=== PATIENT | female | born 1945 | race African-American/Black ===

== ENCOUNTER 2017-09-20 10:11 | Outpatient (CLI) | payer MEDICARE ==
[~2017-09-20 10:11] MED LIST: Gadobenate Dimeglumine 529 MG/1 ML (20ML VIAL) ONE
[2017-09-20 11:16] LABS: Estimated GFR-MDRD - POC Greater than 90
--- NOTE | 2017-09-20 13:50 | MRI ---
MRI ABDOMEN WITH AND WITHOUT CONTRAST: Date: 09/20/17 HISTORY: R93.5. COMPARISON: CT dated 09/06/17. CT chest from 2007. FINDINGS: There is a mass in the left adrenal gland, which is new from the 2008 CT chest examination. Mass pamela ures 3.5 x 3.3 x 3.7 cm (trans x AP x CC) with central cystic change. On the contrast enhanced portio n of the examination, there is marked enhancement with multiple flow-voids of vessels. The mass retai ns contrast on the delayed sequence. No hydronephrosis. No abnormal enhancing renal mass. No dilated loops of bowel. Liver, gallbladder, s pleen, and pancreas are all unremarkable. No adenopathy. There is a focal abnormal area of enhancement within the L3 vertebral body. There is also abnormal fo cus of enhancement in right iliac wing, incompletely evaluated on this examination. There are focal a bnormal foci of enhancement of the superior end plate of L3, posterior L2 vertebral body, as well as within the L1 vertebra. There is abnormal increased enhancement along the posterolateral left 11th rib. There is also focal a bnormal enhancement of the right anterior 9th rib. IMPRESSION: 1. Left adrenal mass that has imaging characteristics of pheochromocytoma although is not completely an imaging diagnosis. Recommend correlation with urine metanephrines. Differential include adrenal c ortical carcinoma or metastatic disease. 2. Multiple areas of abnormal enhancement of the vertebra as well as right ilium, and of the right 8 th rib at the costochondral junction concerning for metastasis. There is also abnormal enhancement of posterolateral left 11th rib concerning for fracture. CODE T. POS: [facility]
== END 2017-09-20 10:12 | disposition home or self-care (01) ==
LOC: SCSMRI 10:11
PROVIDERS: ATTEND Internal Medicine
DX: R93.5 Abnormal findings on diagnostic imaging of other abdominal regions, including retroperitoneum (principal); E27.8 Other specified disorders of adrenal gland
CPT/HCPCS: 74183; A9579

== ENCOUNTER 2017-10-08 12:49 | Outpatient (CLI) | payer MEDICARE ==
--- NOTE | 2017-10-08 15:49 | PET ---
EXAM: PET SCAN WITH CT ATTENUATION CORRECTION 10/08/17 HISTORY: Breast cancer with suspected metastases. COMPARISON: None. CORRELATION: Abdomen MRI 09/19/17, chest, abdomen and pelvic CT 09/06/17. TECHNIQUE: PET scan with CT attenuation correction performed after patient was administered 10.5 millicuries of [id number]. FINDINGS: HEAD AND NECK: No abnormal FDG localization. CHEST: No abnormal FDG localization. ABDOMEN: There is hypermetabolic activity involving a previously identified left adrenal mass with a maximum S UV of 6.6. There is a soft tissue mass in the anterior left peritoneum with a maximum SUV of 8.5. OSSEOUS STRUCTURES: There is extensive and multifocal hypermetabolic activity throughout the osseous structures. For exam ple, hypermetabolic focus in the right scapula has maximum SUV of 2.8. There is increased FDG localiz ation involving the thoracic vertebrae with a maximum SUV of 3.9 at T9 and 3.6 at T10. The T10 lesion appears to have an epidural component. There is increased FDG localization involving the iliac bones. Maximum SUV on the right is 4.1 and ma ximum SUV on the left iliac bone is 5.6. IMPRESSION: Intra-abdominal and osseous metastases as detailed above. Results of the study discussed with Dr. Lambert 10/08/17 at 3:29 p.m. Code CR POS: [facility]
== END 2017-10-08 12:50 | disposition home or self-care (01) ==
LOC: PET 12:49
PROVIDERS: ATTEND Internal Medicine Hematology & Oncology
DX: C50.919 Malignant neoplasm of unspecified site of unspecified female breast (principal); C79.51 Secondary malignant neoplasm of bone; C79.89 Secondary malignant neoplasm of other specified sites
CPT/HCPCS: 78815; A9552

== ENCOUNTER 2018-02-04 13:01 | Outpatient (CLI) | payer MEDICARE ==
--- NOTE | 2018-02-04 15:36 | PET ---
PET CT: Date: 02/04/18 HISTORY: 73-year-old female with left breast cancer and bone mets. Exam requested for restaging. Patient is st atus post chemo/radiation therapy. TECHNIQUE: PET scanning with CT attenuation correction was performed from the base of the brain through the prox imal thighs following the intravenous administration of 12.1 mCi F18-FDG in the right hand. COMPARISON: PET scan dated 10/08/17. FINDINGS: Head/Neck: No abnormal FDG localization. Chest: No abnormal FDG localization. Abdomen/Pelvis: There is continued hypermetabolic activity in the left adrenal mass with a QSUV of 9.4 (previously 10 .3). The hypermetabolic soft tissue mass in the left lower anterior peritoneum has a SUV of 2.9 (prev iously 8.2). Skeleton: There has been interval resolution of hypermetabolic lesions in the scapula, sternum, thoracolumbar s pine, and right proximal femur. There is continued hypermetabolic activity in the right lateral 8th r ib with a SUV of 5.5 (previously 5.7). The remainder of the hypermetabolic rib lesions have resolved in the interim. Hypermetabolic focus in the sacrum has a SUV of 5 (previously 5.6). Lesions in the iliac bones have SUVs of 4.3 on the right (previously 4.5) and 6.6 on the left (previo usly 7.4). There is physiologic activity in the GI and tracts, and the visualized portions of the brain and t he heart. The CT scan used for attenuation correction demonstrates no evidence of pleural effusions or ascites. IMPRESSION: Partial/incomplete response to therapy with interval improvement since 10/08/17. POS: [facility]
== END 2018-02-04 13:02 | disposition home or self-care (01) ==
LOC: PET 13:01
PROVIDERS: ATTEND Internal Medicine Hematology & Oncology
DX: C50.912 Malignant neoplasm of unspecified site of left female breast (principal); C79.51 Secondary malignant neoplasm of bone
CPT/HCPCS: 78815; A9552

== ENCOUNTER 2018-06-12 08:01 | Outpatient (CLI) | payer MEDICARE, OTHER ==
--- NOTE | 2018-06-12 12:04 | PET ---
PET SCAN WITH CT ATTENUATION CORRECTION: HISTORY: Metastatic breast cancer. COMPARISON: 02/04/18. TECHNIQUE: PET scanning with CT attenuation correction is performed from the base of the brain to the proximal t highs following the intravenous administration of 10.1 mCi F18-FDG. FINDINGS: HEAD/NECK: No abnormal FDG localization. CHEST: No abnormal FDG localization. ABDOMEN: There is hypermetabolic activity in the left adrenal gland with a maximum SUV of 2.6. Previously, the maximum SUV was reported to be 9.4. There is hypermetabolic activity involving a soft tissue mass in the anterior left lower quadrant peritoneum with a maximum SUV of 7.5. Previously, the maximum SUV w as 9.4. OSSEOUS STRUCTURES: There is extensive multifocal hypermetabolic activity. Hypermetabolic activity is noted in the ribs, right scapula, sacrum, and bony pelvis. Hypermetabolic activity in the sacrum currently measures 4.3 (previously measuring 5.0). Additional hypermetabolic activity in the left and right iliac wing measu re between 4.3-8.3 to 5.4, respectively. There is hypermetabolic activity involving the spinous proce ss at T1, as well as C3. IMPRESSION: Persistent hypermetabolic activity in the osseous structures, left adrenal gland, and associated with a soft tissue mass in the left anterior peritoneum. There has been slight appreciable decrease in th e overall degree of FDG avidity when compared to the previous exam. POS: [facility]
== END 2018-06-12 08:02 | disposition home or self-care (01) ==
LOC: PET 08:01
PROVIDERS: ATTEND Internal Medicine Hematology & Oncology
DX: Z08 Encounter for follow-up examination after completed treatment for malignant neoplasm (principal); Z85.3 Personal history of malignant neoplasm of breast; K66.8 Other specified disorders of peritoneum
CPT/HCPCS: 78815; A9552

== ENCOUNTER 2018-10-02 09:06 | Outpatient (CLI) | payer MEDICARE ==
--- NOTE | 2018-10-02 12:23 | PET ---
RADIONUCLIDE PET SCAN WITH CT ATTENUATION CORRECTION: HISTORY: Breast cancer. Osseous metastasis. Restaging. COMPARISON: 06/12/18. FINDINGS: Physiologic uptake of radiotracer throughout the enteric system and along each urinary tract. Uptake at the left adrenal gland shows a maximum SUV of 2.8 (previously 2.6). Hypermetabolic foci throughout the skeleton are again demonstrated. C2 spinous process maximum SUV 3.5 (previously 2.9). Right scapula maximum SUV 3.4 (previously 3.9). Left scapula maximum SUV 2.2 (previously 4.2). Right 8th rib SUV 5.5 (previously 4.2). Right iliac bone similar at 8.1 maximum SUV. Left iliac bone similar at 9.6 maximum SUV. Sacrum SUV 4.6 (previously 4.3). Within the posterior aspect of the sternomanubrium, a focus of increased uptake now shows a maximum S UV of 5.1. No abnormal uptake was apparent at this location on the previous exam. The mass within the left anterior abdomen immediately deep to the abdominal wall musculature shows ma ximum SUV of 8.3 (previously 7.5). Nondiagnostic CT attenuation correction images again shows prominent calcification throughout the art erial structures. IMPRESSION: 1. A new focus of hypermetabolic activity is now present within the sternomanubrium as detailed abov e. No other new abnormalities are apparent. 2. Other osseous abnormalities, the left anterior intra-abdominal mass, and mildly hypermetabolic ac tivity associated with left adrenal gland are otherwise stable. 3. Atherosclerosis. POS: [facility]
== END 2018-10-02 09:07 | disposition home or self-care (01) ==
LOC: PET 09:06
PROVIDERS: ATTEND Internal Medicine Hematology & Oncology
DX: C50.919 Malignant neoplasm of unspecified site of unspecified female breast (principal); R19.00 Intra-abdominal and pelvic swelling, mass and lump, unspecified site; I70.90 Unspecified atherosclerosis
CPT/HCPCS: 78815; A9552

== ENCOUNTER 2018-10-13 10:41 | Outpatient (CLI) | payer MEDICARE ==
--- NOTE | 2018-10-13 15:21 | CT ---
CT CHEST WITH CONTRAST: 10/13/18 HISTORY: Abnormal PET scan. COMPARISON: PET CT 10/02/18. FINDINGS: Corresponding to the area of hypermetabolic activity in the PET CT examination is a focal lucency of the posterior manubrium with the sternum. This is faint and not well defined, although is concerning for a new focus of osseous metastatic disease. No retrosternal soft tissue mass is appreciated. Heart size is mildly enlarged. Pulmonary trunk size is enlarged measuring 3 cm. Aortic contour is non aneurysmal. Mild right sided hemithorax and pleural thickening posteriorly. No left sided pleural thickening. No new suspicious pulmonary nodules. Osseous metastatic disease has been described. Mass of the left adrenal gland appears more necrotic than the prior examinations likely sequela of tr eatment response. Extensive mixed lytic and blastic lesions of the skeleton as previously described. Advanced degenerative disease of the left glenohumeral joint and moderate degenerative disease right glenohumeral joint. Large lytic mass within the right T10 vertebral body is similar to the comparison examination and is at risk for pathologic fracture, although no significant height loss is yet prese nt at this level. Overall there are more foci of sclerosis and lytic foci within the ribs from the 08/12 exam. IMPRESSION: 1. Corresponding to the PET CT findings is a new cortical and medullary erosive lytic focus with in the sternum as described. It is ill-defined although there is loss of normal cortical integrity po steriorly. No associated soft tissue or mediastinal mass. It is concerning for progressive metastatic disease. 2. Increased necrosis left adrenal mass suggesting treatment response. 3. Some mild edema within the left sided omentum in the abdomen suggesting congestion and metast atic disease. POS: [facility]
== END 2018-10-13 10:42 | disposition home or self-care (01) ==
LOC: BICCT 10:41
PROVIDERS: ATTEND Internal Medicine Hematology & Oncology
DX: R93.5 Abnormal findings on diagnostic imaging of other abdominal regions, including retroperitoneum (principal); E27.8 Other specified disorders of adrenal gland; R60.0 Localized edema; Z85.3 Personal history of malignant neoplasm of breast
CPT/HCPCS: 71260

== ENCOUNTER 2018-12-10 10:18 | Outpatient (CLI) | payer MEDICARE ==
--- NOTE | 2018-12-10 14:06 | NM ---
NM Bone Scan STANDARD WHOLE BODY BONE SCAN: HISTORY: Breast cancer, bone metastases, right rib pain. Malignant neoplasm of unspecified site of un specified female breast RADIOPHARMACEUTICAL: 30.6 mCi technetium-99m MDP injected intravenously. COMPARISON: None FINDINGS: There is increased uptake in the shoulders, sternoclavicular joints, elbows, hands, and feet consist ent with degenerative changes. There are multiple foci of abnormally increased tracer localization in the skeleton consistent with o sseous metastatic disease including the sternum, skull, spine, ribs and pelvis. Tracer excretion through the kidneys is within normal limits. IMPRESSION: Findings are consistent with osseous metastatic disease.
== END 2018-12-10 10:19 | disposition home or self-care (01) ==
LOC: NM 10:18
PROVIDERS: ATTEND Internal Medicine Hematology & Oncology
DX: C79.51 Secondary malignant neoplasm of bone (principal); C50.919 Malignant neoplasm of unspecified site of unspecified female breast; R07.81 Pleurodynia; Z85.3 Personal history of malignant neoplasm of breast; Z79.51 Long term (current) use of inhaled steroids
CPT/HCPCS: 78306

== ENCOUNTER 2019-03-31 09:38 | Outpatient (CLI) | payer MEDICARE ==
--- NOTE | 2019-03-31 15:04 | PET ---
PET CT: HISTORY: A 74-year-old female with left breast cancer and bone mets. The patient is undergoing chemotherapy. The exam is requested for restaging. TECHNIQUE: PET scanning with CT attenuation was performed from the base of the brain through the proximal thighs following the intravenous administration of 11.6 mCi [id number] in the right hand. COMPARISON: PET CT of 10/02/2018. CORRELATION: Bone scan of 12/10/[address] chest of 10/23/2018. FINDINGS: No darryl hypermetabolism is seen in the neck, chest, axilla, abdomen, or pelvis. Numerous foci of ab normal FDG localization is seen in the skeleton including the spine, pelvis, ribs, scapulae, and ster num. SUVs in the bones include manubrium sterni 11.3 (previously 5.1), L1 7.2 (previously 4.1), sacr um 7.1 (previously 4.6), and left superior acetabulum 12.4 (9.6). No new areas of FDG localization a re seen. No new bony lesions are seen. Hypermetabolic activity in the left adrenal mass has an SUV of 3.6 (previously 2.7). Intense uptake is seen in the region of the omentum with a maximum SUV of 13.4 on the right and 11 on the left. No hypermetabolic pulmonary nodules or liver lesions are seen. The CT used for attenuation correction demonstrates a moderate-sized left pleural effusion and a tiny right pleural effusion. There is a moderate amount of ascites. IMPRESSION: Interval worsening of metastatic disease since 10/02/2018. POS: [facility]
== END 2019-03-31 12:00 | disposition home or self-care (01) ==
LOC: PET 09:38
PROVIDERS: ATTEND Internal Medicine Hematology & Oncology
DX: C79.51 Secondary malignant neoplasm of bone (principal); C50.912 Malignant neoplasm of unspecified site of left female breast
CPT/HCPCS: 78815; A9552

== ENCOUNTER 2019-04-14 08:30 | Day surgery (SDC) | payer MEDICARE ==
[2019-04-13 17:06] VITALS: BMI 31.3
[2019-04-14 08:54] LABS: Prothrombin Time 13.6 SEC (12.0-14.7)
[2019-04-14 08:55] LABS: Hemoglobin 10.7 g/dL (12.0-16.0); Mean Corpuscular HGB CONC 33.2 g/dL (32.0-36.0); Mean Corpuscular Hemoglobin 38.8 pg (27.0-31.0); Mean Platelet Volume 5.8 fL (7.4-10.4); PTT 29.6 SEC (22.9-36.1); Platelet Count 347 thou/uL (130-400); RBC Distribution Width 14.4 % (11.5-14.5); Red Blood Cell (RBC) Count 2.76 mill/uL (4.20-5.40); White Blood Cell (WBC) Count 3.1 thou/uL (4.8-10.8)
[2019-04-14 08:56] LABS: #Lymphocytes 1.1 thou/uL (1.20-3.40); #Monocytes 0.2 thou/uL (0.11-0.59); #Neutrophils 1.8 thou/uL (1.40-6.50); %Basophils 1.3 % (0.0-1.0); %Eosinophils 1.2 % (0.0-10.0); %Lymphocytes 34.6 % (21.0-51.0); %Monocytes 4.8 % (0.0-10.0); %Neutrophils 58.1 % (42.0-75.0)
[2019-04-14 09:15] LABS: MDiff Complete? YES; Macrocytosis MODERATE=16-30 cells (100X) (0-5/hpf); Platelet Morphology Comment Appears Adequate; Polychromasia SLIGHT = 2-3 cells (100X) (0-2/hpf)
[2019-04-14] MEDS ORDERED: Midazolam HCl 2 mg/2 ml Vial ONE (10:18)
[2019-04-14] MEDS ORDERED: Fentanyl 100 MCG/2 ML VIAL ONE (10:18)
[2019-04-14] MEDS ORDERED: Sodium Bicarbonate 2.5 MEQ/5 ML VIAL ONE (10:18)
--- NOTE | 2019-04-14 15:18 | CT ---
CT GUIDED RIGHT ILIAC LYTIC BONE LESION: CLINICAL HISTORY: Lytic bone lesions in the pelvis.. PROCEDURE: The procedure including the risks and complications were explained to the patient, and informed conse nt was obtained. The patient was placed on the CT scan table in the prone position. Noncontrasted CT images were obtained through the pelvis. An area was marked overlying the right bushra c bone lesion, and the area was meticulously prepped and draped in usual sterile fashion. The skin and subcutaneous tissues were infiltrated with buffered 1% lidocaine for local anesthesia. After a small skin incision was made, a 17-gauge guide needle was advanced and positioning was confir med with axial CT images. Utilizing coaxial technique, a total of three 18-gauge core needle biopsy specimens were obtained. Adequate specimen was obtained with the initial biopsy with only scant mater ial obtained with the 2 subsequent biopsies. Needle aspiration of this region was also performed and placed in solution. The needle was removed, and hemostasis was achieved with direct pressure. Pos tprocedure axial CT images demonstrate no hematoma or adjacent fluid at biopsy site. The patient tolerated the procedure well and without immediate complication. The patient was transpor allyssa to radiology nurses holding area for further monitoring prior to discharge. IMPRESSION: Technically successful CT-guided percutaneous biopsy of right iliac lytic bone lesion. Pathology results are pending.
== END 2019-04-14 12:20 | disposition home or self-care (01) ==
LOC: RAD 08:30
PROVIDERS: ATTEND Internal Medicine Hematology & Oncology
PROC: 0QB23ZX Excision of Right Pelvic Bone, Percutaneous Approach, Diagnostic (ICD-10-PCS; principal; 2019-04-14)
DX: C79.51 Secondary malignant neoplasm of bone (principal); C50.919 Malignant neoplasm of unspecified site of unspecified female breast; E11.9 Type 2 diabetes mellitus without complications; I10 Essential (primary) hypertension; I25.10 Atherosclerotic heart disease of native coronary artery without angina pectoris; E78.00 Pure hypercholesterolemia, unspecified; Z79.02 Long term (current) use of antithrombotics/antiplatelets; Z79.4 Long term (current) use of insulin; Z79.82 Long term (current) use of aspirin; Z79.899 Other long term (current) drug therapy; Z88.2 Allergy status to sulfonamides
CPT/HCPCS: 20225; 36415; 77002; 85025; 85610; 85730; 88307; 88333; 88334; 88341; 88342; 88360; J2250; J3010

== ENCOUNTER 2019-07-15 09:10 | Outpatient (CLI) | payer MEDICARE ==
[2019-07-15] MEDS ORDERED: Iopamidol 370 76% 100 ML VIAL ONE (11:32)
--- NOTE | 2019-07-15 11:35 | CT ---
CT CHEST WITH IV CONTRAST CT ABDOMEN WITH IV CONTRAST CT PELVIS WITH IV CONTRAST: HISTORY: Left breast cancer and bone mets. The patient is status post lumpectomy and chemoradiation therapy. COMPARISON: CT chest of 10/13/2018. CORRELATION: PET CT of 03/31/2019. FINDINGS: Tiny bilateral pleural effusions are seen. No mediastinal, hilar, or axillary mass or lymphadenopath y identified. No pericardial effusion is noted. No lung nodules or masses are noted. There are pat john ground-glass infiltrates in the left lung likely due to radiation changes. Calcified granulomas are again seen in the liver. The spleen, pancreas, kidneys, and right adrenal gland appear normal. A 3 cm left adrenal mass is stable since the PET scan. No free air, free fluid, or lymphadenopathy is seen in the abdomen or pelvis. Omental caking is agai n noted on the PET CT is again noted. There are vascular calcifications without evidence of aneurysmal dilatation of the thoracoabdominal a linda. The small bowel loops are not abnormally dilated. The patient is post hysterectomy. Lytic an d sclerotic lesions in the skeleton are redemonstrated. IMPRESSION: 1. Tiny bilateral pleural effusions. 2. Stable left adrenal mass and omental caking. 3. Osseous metastatic disease. POS: [facility]
--- NOTE | 2019-07-15 14:13 | NM ---
WHOLE BODY BONE SCAN: HISTORY: Malignant neoplasm of unspecified of unspecified female breast. Breast cancer. Bone metastasis. RADIOPHARMACEUTICAL: Technetium 99m MDP 31.6 millicuries injected intravenously. COMPARISON: 12/10/2018 FINDINGS: There is redemonstration of multiple foci of abnormal increased tracer localization in the skeleton, consistent with osseous metastatic disease, including the sternum, skull, spine, ribs and pelvis. Increased uptake in multiple joints, consistent with degenerative changes, is again noted. Tracer excretion through the kidneys is within normal limits. IMPRESSION: Stable osseous metastatic disease. POS: [facility]
== END 2019-07-15 09:11 | disposition home or self-care (01) ==
LOC: CT 09:10
PROVIDERS: ATTEND Internal Medicine Hematology & Oncology
DX: C50.919 Malignant neoplasm of unspecified site of unspecified female breast (principal); C79.51 Secondary malignant neoplasm of bone; J90 Pleural effusion, not elsewhere classified; E27.8 Other specified disorders of adrenal gland
CPT/HCPCS: 71260; 74177; 78306; A9503; Q9967

== ENCOUNTER 2020-05-23 11:47 | Outpatient (CLI) | payer MEDICARE ==
--- NOTE | 2020-05-23 15:26 | NM ---
Radionucleotide hepatobiliary scan and gallbladder ejection fraction HISTORY: Right upper quadrant pain. FINDINGS: Physiologic uptake of radiotracer throughout the hepatic parenchyma on the early images. Ga llbladder first imaged at 9 minutes. Uptake is apparent within the small bowel at 23 minutes. After administration of fatty meal, there is rapid and progressive excretion of radiotracer from the gallbladder to the small bowel. Ejection fraction calculated at 90%. IMPRESSION : Normal exam. Normal gallbladder ejection fraction.
== END 2020-05-23 11:48 | disposition home or self-care (01) ==
LOC: NM 11:47
PROVIDERS: ATTEND Internal Medicine
DX: R10.11 Right upper quadrant pain (principal)
CPT/HCPCS: 78227; A9537

== ENCOUNTER 2020-06-20 10:39 | Outpatient (CLI) | payer MEDICARE ==
--- NOTE | 2020-06-20 11:29 | ULT ---
EXAM: US Thyroid STANDARD PROVIDED CLINICAL HISTORY: Cyst in thyroid gland. COMPARISON: None FINDINGS: Right lobe of the thyroid gland measures 4 cm x 1.9 cm x 1.2 cm. Three small circumscribed hypoechoic nodules are seen in the superior and inferior pole and midportio n right lobe of the thyroid gland each measuring approximately 0.5 cm in maximal dimension. Left lobe of the thyroid gland measures 3.8 cm x 1.7 cm x 1.3 cm. Two small hypoechoic circumscribed nodules are seen in the right lobe of thyroid gland with a 0.6 cm nodule in the midportion left lobe of thyroid gland and a 0.5 cm nodule in the midportion left lobe of the thyroid gland. The thyroid isthmus measures 0.4 cm in AP dimensions IMPRESSION: TI RADS level 4 nodules in each lobe of the thyroid gland-moderately suspicious nodules. Based on ACR guidelines and size characteristics, no additional follow-up is warranted for nodules measuring less than 1 cm.
== END 2020-06-20 10:40 | disposition home or self-care (01) ==
LOC: BICULT 10:39
PROVIDERS: ATTEND Internal Medicine Cardiovascular Disease
DX: E04.2 Nontoxic multinodular goiter (principal)
CPT/HCPCS: 76536

== ENCOUNTER 2020-07-13 21:40 | Inpatient (IN) | payer MEDICARE ==
[2020-07-14] MEDS ORDERED: Ondansetron ODT 4 MG TAB PO PRN (00:29)
[2020-07-14] MEDS ORDERED: Ondansetron PF 4 MG/2 ML Vial IVP PRN (00:29)
[2020-07-14] MEDS ORDERED: Acetaminophen 325 MG TAB PO PRN (00:29)
[2020-07-14] MEDS ORDERED: Sodium Chloride 0.9% 1,000 ML IV SCH (00:30)
[2020-07-14] MEDS ORDERED: HumaLOG 300 UNITS/3 ML VIAL SC PRN (00:38)
[2020-07-14] MEDS ORDERED: Dextrose 5% in Water 1,000 ML IV PRN (00:38)
[2020-07-14] MEDS ORDERED: Dextrose 50% Abboject 50 ML SYRINGE SLOW IVP PRN (00:38)
--- NOTE | 2020-07-14 00:59 | PDOC.HHP ---
Hospitalist HPI - History of Present Illness Abdominal pain History of Present Illness: The patient is a 75-year-old female with a past medical history significant for malignant breast cancer with osseous metastasis (on chemotherapy) followed by Dr. Lambert, CAD, DM 2 and GERD that presents to the hospital via EMS as a direct admit from [facility]. Patient reports having abdominal pain for the past month. However, over the past 2 days her symptoms have intensified. She reports abdominal pain, located generalized throughout the abdomen, described as aching pain, intermittent, exacerbated and relieved by nothing. She reports associated nausea vomiting and diarrhea. She vomited 5-6 times yesterday, unsuccessfully treated with Phenergan. She denies any hematemesis. She reports 5-6 loose stools in the past 2 days. She denies any hematochezia, melena or marcus colored stools. Denies any recent antibiotics, hospitalizations, or travel. She has no known sick/Covid contacts. She reports some associated chills, was unable to check her temperature. She denies chest pain, heart palpitations, lightheadedness. She denies shortness of breath, wheezing or cough. She denies any dysuria or hematuria or dark colored urine. ED Course: [facility] ER: Presented T 97F, BP 102/43, HR 85, RR 16, SPO2 97 room air. EKG normal sinus rhythm, no ST elevations. CT abdomen and pelvis showed small pleural effusions, gallbladder wall thickening and/or pericholecystic fluid. GGT 246, ALP 236, ALT 236, AST 400, T bili 3.0, amylase 379 WBC 17.8, Hgb 10.2, HCT 29.7, platelets 206 Medication administration: Zosyn 3.375 IVPB Zofran Morphine 1 L normal saline Hospitalist ROS - Review of Systems All other systems reviewed; all pertinent +/- noted in HPI/Subj - Medication Medications: Home medications: Unable to reconcile at bedside. Allergies: Sulfa Hospitalist History - Past Medical History Source: patient, RN notes reviewed Cardiac: reports: CAD, HTN, Hyperlipidemia Gastrointestinal: reports: GERD Heme/Onc: reports: Cancer (Breast cancer with osseous mets) Endocrine: reports: Diabetes (Insulin-dependent) - Past Surgical History Past Surgical History: reports: CABG (1997), Hysterectomy - Family History Family History: reports: cancer, cardiac disorder - Social History Smoking Status: Never smoker Alcohol: reports: None Drugs: reports: none Living Situation: Alone Occupation: Retired Activity level: independent ambulation - Exam General Appearance: NAD, awake alert. negative: ill appearing Eye: anicteric sclera ENT: normocephalic atraumatic Neck: supple, symmetric Heart: RRR, no murmur, no gallops, no rubs, normal peripheral pulses Respiratory: CTAB, no wheezes, no rales, no ronchi, normal chest expansion, no tachypnea Gastrointestinal: soft, normal bowel sounds, no guarding, no rigidity, tender to palpation (Generalized) Gastrointestinal - other findings: Positive Ngo sign, negative Rovsing sign Extremities: no cyanosis, no edema Skin: no rashes Neurological: no focal deficits Psychiatric: normal affect, A&O x 3 Hospitalist Results - Labs Lab results: Sodium 138, potassium 3.7, chloride 101, CO2 24, BUN 27, creatinine 1.2, glucose 88 GGT 246, ALP 236, ALT 236, AST 400, T bili 3.0, amylase 379 WBC 17.8, HGB 10.2, HCT 29.7, platelets 206 UA small bili, small blood COVID-19 negative - EKG Interpretation EKG: Normal sinus rhythm - Radiology Interpretation CT scan - abdomen Status: report reviewed by me Additional Comment: Gallbladder wall thickening and/or pericholecystic fluid. Small pleural effusions. Hospitalist H&P A/P - Problem (1) Cholecystitis Code(s): K81.9 - CHOLECYSTITIS, UNSPECIFIED Status: Acute (2) Transaminitis Code(s): R74.01 - ELEVATION OF LEVELS OF LIVER TRANSAMINASE LEVELS Status: Acute (3) DM2 (diabetes mellitus, type 2) Status: Chronic (4) CAD (coronary artery disease) Code(s): I25.10 - ATHSCL HEART DISEASE OF [place] CORONARY ARTERY W/O ANG PCTRS Status: Chronic (5) History of breast cancer Code(s): Z85.3 - PERSONAL HISTORY OF MALIGNANT NEOPLASM OF BREAST Status: Chronic (6) GERD (gastroesophageal reflux disease) Code(s): K21.9 - GASTRO-ESOPHAGEAL REFLUX DISEASE WITHOUT ESOPHAGITIS Status: Chronic (7) HTN (hypertension) Code(s): I10 - ESSENTIAL (PRIMARY) HYPERTENSION Status: Chronic (8) HLD (hyperlipidemia) Code(s): E78.5 - HYPERLIPIDEMIA, UNSPECIFIED Status: Chronic - Plan Plan: 75/F with PMH CAD, breast cancer with mets, GERD, DM 2 presents for abdominal pain. Admit to oncology floor, inpatient status. Expected length of stay greater than 2 midnights. Transfer from [facility] ER, direct admit. Presented stable vital signs. EKG normal sinus rhythm. CT abdomen pelvis gallbladder wall thickening and/or pericholecystic fluid. Small pleural effusions. WBC 17.8, elevated LFTs. UA small bilirubin, small blood. Covid negative #Cholecystitis Concern for obstruction. ER MD consulted GI, Dr. Verma, ordered MRCP in a.m. N.p.o. Continue Zosyn IVPB. Morphine, Zofran as needed Protonix daily. Repeat BMP, hepatic panel, CBC in a.m. #Transaminitis Likely related to problem #1. #DM2 Takes Lantus 26 units a.m./20 units at bedtime. ISS at home. Hold all antihyperglycemic home medications. Start moderate ISS. Every 6 hour checks. #CAD Takes metoprolol, Imdur, aspirin, Plavix at home. Hold Plavix. Restart metoprolol and aspirin. #History of breast cancer Malignant breast cancer with osseous metastasis. Last radiation (2016) Currently on oral chemotherapy. Followed by Dr. Lambert. #GERD Takes omeprazole unknown dosage at home. Start Protonix. #HTN Takes metoprolol 100 mg, lisinopril unknown dose at home. Restart home dose metoprolol. Continue to monitor BP. #HLD Takes 40 mg atorvastatin at home. Restart home dose of atorvastatin. SCDs for DVT prophylaxis. Protonix for GI prophylaxis. Full code. Discussed the case with Dr. Jaswinder Montemayor
[2020-07-14] MEDS: Morphine 2 MG/ML VIAL SLOW IVP PRN ×3 (01:21→21:39)
[2020-07-14] MEDS: Piperacillin/Tazobactam 3.375 GM in Sodium Chloride 0.9% 100 ML IVPB SCH ×4 (03:48→21:39)
[2020-07-14 04:03] LABS: Band 38 % (5-11); Hemoglobin 10.4 g/dL (12.0-16.0); Lymphocytes 9 % (21-51); MDiff Complete? YES; Mean Corpuscular HGB CONC 32.7 g/dL (32.0-36.0); Mean Corpuscular Hemoglobin 30.1 pg (27.0-31.0); Mean Corpuscular Volume 91.8 fL (78.0-98.0); Mean Platelet Volume 6.8 fL (7.4-10.4); Monocytes 9 % (0-10); Neutrophil 44 % (42-75); Platelet Count 180 thou/uL (130-400); Platelet Morphology Comment Appears Adequate; RBC Distribution Width 14.8 % (11.5-14.5); Red Blood Cell (RBC) Count 3.45 mill/uL (4.20-5.40); White Blood Cell (WBC) Count 16.4 thou/uL (4.8-10.8)
[2020-07-14 04:05] LABS: ALT (SGPT) 207 U/L (8-55); AST (SGOT) 271 U/L (5-34); Albumin 3.3 g/dL (3.4-4.8); Alkaline Phosphatase 258 U/L (40-110); Anion Gap 17 mmol/L (10-20); BUN (Urea Nitrogen) 23 mg/dL (9.8-20.1); Bilirubin, Direct 2.2 mg/dL (0.1-0.3); Bilirubin, Total 3.4 mg/dL (0.2-1.2); Calc. Creatinine Clearance 64 mL/min (70-130); Calcium 7.8 mg/dL (7.8-10.44); Carbon Dioxide 21 mmol/L (23-31); Chloride 106 mmol/L (98-107); Estimated GFR-MDRD 72; Glucose 71 mg/dL (83-110); Potassium 3.7 mmol/L (3.5-5.1); Protein, Total 6.3 g/dL (6.0-8.3); Sodium 140 mmol/L (136-145)
[2020-07-14] MEDS: Dextrose 5 %-0.45 % NaCl 1,000 ML IV SCH ×2 (05:48→20:21)
[2020-07-14] MEDS: Pantoprazole 40 MG VIAL IVP SCH (09:00)
[2020-07-14] MEDS ORDERED: Aspirin Chewable 81 MG TAB PO SCH (09:00)
--- NOTE | 2020-07-14 10:07 | MRI ---
MRI OF THE ABDOMEN WITHOUT CONTRAST: INDICATION: History of cholecystitis, rule out common bile duct obstruction. FINDINGS: There is gallbladder wall thickening and gallbladder distention. The common bile duct measures betwe en 5 and 6 mm which is within normal limits. No visible common bile duct stone is evident. The panc reas and main pancreatic duct appear within normal limits. There is a stable left adrenal mass measu ring up to 3 cm. There is nodularity involving the anterior omentum consistent with patient's known history of peritoneal carcinomatosis. A small amount of free fluid is seen within the abdomen. The right adrenal gland, right kidney, and spleen appear within normal limits. There is heterogeneous si gnal involving the bone marrow consistent with changes of diffuse osseous metastatic disease. IMPRESSION: 1. Gallbladder distention and gallbladder wall thickening may reflect acute acalculus cholecystitis. No definite common bile duct stone is evident. 2. Stable peritoneal carcinomatosis, left adrenal metastatic lesion, and osseous metastatic disease with mild ascites. POS: [facility]
[2020-07-14] MEDS: Gabapentin 100 MG CAP PO SCH (21:38)
[2020-07-14] MEDS: Brimonidine Tartrate 0.2% Ophth Soln 5 ml Bottle L EYE SCH (21:38)
--- NOTE | 2020-07-15 00:01 | CON ---
DATE OF CONSULTATION: 07/14/2020 CHIEF COMPLAINT: Abdominal pain. HISTORY OF PRESENT ILLNESS: Ms. Plummer is a 75-year-old woman, who was admitted with right upper quadrant abdominal pain. She had similar pain back in April for which she had an ultrasound and a HIDA scan that were okay. She had recurrence of the pain started at 2 o'clock, Saturday morning. The pain was severe and sharp and radiated around her right back. She had nausea and vomiting with that. This went on all night until the next morning and so she came on to [facility], where a CT scan was performed and blood work was done. Her liver tests were noted to have obstructive pattern and she had inflammatory changes or thickening and fluid around the gallbladder and she was sent on to the [place] [facility]. An MRCP was performed this morning that showed gallbladder distention and wall thickening suggestive of acalculous cholecystitis. No common bile duct stone was seen. Her common bile duct measured between 5 and 6 mm. 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 Today, she has had no further vomiting, but she did feel nauseated. She did have four or five episodes of diarrhea last night, but that has resolved today. She has had no blood in the stool. Weight is stable. She had surgery and radiation for breast cancer back in 2005. She had IV chemotherapy initially. Three years ago, round about, she started on oral medications for the cancer and around a year ago, she changed her current regimen which is two pills per day with her current chemo regimen. Currently, she is on IV antibiotics and her pain is improved compared to last night. She still has a constant dull aching pain. PAST MEDICAL HISTORY: Breast cancer, coronary artery disease, diabetes mellitus type 2, gastroesophageal reflux. PAST SURGICAL HISTORY: Breast lump removed, coronary artery bypass graft, hysterectomy. FAMILY HISTORY: Negative for GI malignancy. SOCIAL HISTORY: No alcohol, tobacco, or drugs. ALLERGIES: SULFA. CURRENT INPATIENT MEDICATIONS: 1. Aspirin. 2. Isosorbide mononitrate. 3. Pantoprazole. 4. Zosyn. OUTPATIENT MEDICATIONS: She is on; 1. Plavix. 2. Everolimus. 3. Exemestane. 4. Aspirin. 5. Gabapentin. 6. Omeprazole. 7. Atorvastatin. 8. Isosorbide. 9. Lisinopril. 10. Metoprolol. 11. Pyridoxine. 12. Insulin. REVIEW OF SYSTEMS: Negative x10 systems reviewed except as stated in the history of present illness. PHYSICAL EXAMINATION: VITAL SIGNS: Temperature 98.8, pulse 88, blood pressure 129/63. GENERAL: She is in no acute distress. Alert and oriented x3. HEENT: Eyes have no scleral icterus. Oropharynx is clear without lesions. No cervical or supraclavicular lymphadenopathy. LUNGS: Clear to auscultation bilaterally. HEART: Regular rate and rhythm without murmur. ABDOMEN: Soft. She has tenderness in the right upper quadrant, but nontender throughout the abdomen otherwise. She does have tenderness with inspiration in the right upper quadrant. Bowel sounds are present. EXTREMITIES: No lower extremity edema. LABORATORY DATA: White blood cell count 16.4, hemoglobin 10.4, platelets 180, bands 38%. INR 1.0, bilirubin 3.4, AST 271, ALT 207, alkaline phosphatase 258, albumin 3.3, creatinine 0.92. IMPRESSION: 1. Acalculous cholecystitis. MRI and CT show gallbladder wall thickening and pericholecystic fluid with abrupt onset of right upper quadrant pain. This is complicated by the fact that she has metastatic breast cancer with carcinomatosis. 2. Abnormal liver test. She has mixed obstructive and hepatocellular injury pattern concerning for choledocholithiasis. However, magnetic resonance cholangiopancreatography shows normal common bile duct and no stones. We will see with the trend of her liver test tomorrow. These could be elevated just from the cholecystitis. 3. Metastatic breast cancer with bony mets and carcinomatosis. 4. Coronary artery disease, on Plavix. RECOMMENDATIONS: 1. I discussed the case with Dr. Gan. We will plan to do HIDA scan tomorrow morning. If the gallbladder does not fill indicating acute cholecystitis, then after surgical evaluation, decision will be made for surgery versus cholecystostomy tube. 2. We will follow the trend of her liver test. Job ID: [id number]
[2020-07-15 03:58] LABS: INR-International Normal Ratio 1.2; PTT 37.1 sec (22.9-36.1); Prothrombin Time 15.6 sec (12.0-14.7)
[2020-07-15 04:12] LABS: ALT (SGPT) 122 U/L (8-55); AST (SGOT) 113 U/L (5-34); Albumin 3.1 g/dL (3.4-4.8); Alkaline Phosphatase 211 U/L (40-110); Anion Gap 13 mmol/L (10-20); BUN (Urea Nitrogen) 14 mg/dL (9.8-20.1); Bilirubin, Total 1.6 mg/dL (0.2-1.2); Calc. Creatinine Clearance 74 mL/min (70-130); Calcium 7.9 mg/dL (7.8-10.44); Carbon Dioxide 23 mmol/L (23-31); Chloride 106 mmol/L (98-107); Estimated GFR-MDRD 84; Glucose 192 mg/dL (83-110); Potassium 3.3 mmol/L (3.5-5.1); Protein, Total 6.1 g/dL (6.0-8.3); Sodium 139 mmol/L (136-145)
[2020-07-15 04:18] LABS: Troponin I 1.053 ng/mL (< 0.028)
[2020-07-15 04:31] LABS: Band 28 % (5-11); Eosinophils 3 % (0-10); Hemoglobin 10.3 g/dL (12.0-16.0); Lymphocytes 2 % (21-51); MDiff Complete? YES; Mean Corpuscular HGB CONC 32.1 g/dL (32.0-36.0); Mean Corpuscular Hemoglobin 29.4 pg (27.0-31.0); Mean Corpuscular Volume 91.8 fL (78.0-98.0); Mean Platelet Volume 7.1 fL (7.4-10.4); Monocytes 2 % (0-10); Neutrophil 65 % (42-75); Platelet Count 172 thou/uL (130-400); RBC Distribution Width 14.7 % (11.5-14.5); White Blood Cell (WBC) Count 11.5 thou/uL (4.8-10.8)
[2020-07-15] MEDS ORDERED: Aspirin Chewable 81 MG TAB PO SCH (04:45)
[2020-07-15] MEDS ORDERED: Enoxaparin Sodium 40 MG/0.4 ML SYRINGE SC SCH (04:45)
--- NOTE | 2020-07-15 04:52 | PDOC.EVN ---
Event Note - Event Note Event Note: Nursing called with critical troponin. Patient chest pain with inhalation. VSS, HR 90s. Will get EKG, trend trops, give ASA and LMWH x 1, consult cardiology for NSTEMI, preop clearance. Transfer to tele. Discussed with Dr. Jaswinder Montemayor.
[2020-07-15] MEDS ORDERED: Aspirin 325 MG TAB ONE (04:57)
[2020-07-15] MEDS: Piperacillin/Tazobactam 3.375 GM in Sodium Chloride 0.9% 100 ML IVPB SCH ×4 (05:00→21:04)
[2020-07-15] MEDS ORDERED: Enoxaparin Sodium 60 MG/0.6 ML SYRINGE SC SCH (05:30)
--- NOTE | 2020-07-15 07:09 | PDOC.HOSPP ---
- Subjective Encounter Date: 07/15/20 Encounter Time: 11:00 Subjective: Patient with improved abdominal pain. Does report some substernal and left JAIDEN pain last night, specifically bad when taking in a deep breath. Had troponin checked that was positive. EKG was ok. Patient was given full dose aspiring. Cardiology consult pending. Awaiting a bed to transfer to telemetry. No more chest/JAIDEN pain right now. - Objective Vital Signs & Weight: Vital Signs (12 hours) Temp Pulse Resp BP Pulse Ox 07/15/20 04:00 92 L 07/14/20 20:00 98.9 F 85 16 148/69 H 95 Weight Admit Weight 172 lb 8 oz Weight 172 lb 8 oz I&O: 07/14/20 07/15/20 07/16/20 06:59 06:59 06:59 Intake Total 1325 Balance 1325 Result Diagrams: 07/15/20 03:33 07/15/20 03:33 Additional Labs: Accuchecks 07/14/20 07/14/20 07/14/20 23:58 17:59 12:41 POC Glucose 181 H 176 H 91 Hospitalist ROS - Review of Systems Constitutional: denies: fever, chills Respiratory: denies: cough, shortness of breath Cardiovascular: denies: palpitations Gastrointestinal: denies: nausea, vomiting - Medication Medications: Active Medications Generic Name Dose Route Start Last Admin Trade Name Freq PRN Reason Stop Dose Admin Acetaminophen 650 mg 07/14/20 00:29 07/15/20 05:00 Acetaminophen 325 Mg Tab PO 650 mg Q4H PRN Administration Headache/Fever/Mild Pain (1-3) Brimonidine Tartrate 1 drop 07/14/20 21:00 07/14/20 21:38 Brimonidine Tartrate 0.2% Ophth Soln 5 Ml Bottle L EYE 1 drop BID YANET Administration Enoxaparin Sodium 60 mg 07/15/20 05:30 07/15/20 05:33 Enoxaparin Sodium 60 Mg/0.6 Ml Syringe SC 07/15/20 07:30 60 mg NOW YANET Administration Gabapentin 100 mg 07/14/20 21:00 07/14/20 21:38 Gabapentin 100 Mg Cap PO 100 mg TID YANET Administration Piperacillin Sod/Tazobactam 100 mls @ 200 mls/hr 07/14/20 04:00 07/15/20 05:00 Sod 3.375 gm/ Sodium Chloride IVPB 100 mls 0400,1000,1600,2200 YANET Administration Dextrose/Sodium Chloride 1,000 mls @ 75 mls/hr 07/14/20 05:45 07/14/20 20:21 D5 1/2 Ns IV 1,000 mls .[id number] YANET Administration Isosorbide Mononitrate 15 mg 07/14/20 09:00 07/14/20 08:48 Isosorbide Mononitrate Er 30 Mg Tab PO Not Given DAILY YANET Metoprolol Succinate 100 mg 07/14/20 09:00 07/14/20 08:48 Metoprolol Succinate Xl 25 Mg Tab PO Not Given DAILY YANET Morphine Sulfate 2 mg 07/14/20 00:35 07/14/20 21:39 Morphine 2 Mg/Ml Vial SLOW IVP 2 mg Q4H PRN Administration Pain Ondansetron HCl 4 mg 07/14/20 00:29 07/14/20 20:21 Ondansetron Odt 4 Mg Tab PO 4 mg Q6H PRN Administration Nausea/Vomiting Ondansetron HCl 4 mg 07/14/20 00:29 07/14/20 14:54 Ondansetron Pf 4 Mg/2 Ml Vial IVP 4 mg Q6H PRN Administration Nausea/Vomiting Pantoprazole Sodium 40 mg 07/14/20 09:00 07/14/20 09:00 Pantoprazole 40 Mg Vial IVP 40 mg DAILY YANET Administration Sodium Chloride 10 ml 07/14/20 00:29 07/14/20 16:08 Flush - Normal Saline 10 Ml Syringe IVF 10 ml PRN PRN Administration Saline Flush - Exam General Appearance: NAD, awake alert ENT: moist mucosa Heart: RRR, no murmur, no gallops, no rubs Respiratory: CTAB, no wheezes, no rales, no ronchi Respiratory - other findings: TTP lower sterum, reproduces pain Gastrointestinal: soft, non-distended, normal bowel sounds, no guarding, no rigidity Gastrointestinal - other findings: mild TTP RUQ Psychiatric: normal affect, normal behavior, A&O x 3 Hosp A/P - Plan 75/F with PMH CAD, breast cancer with mets, GERD, DM 2 presents for abdominal pain. Admit to oncology floor, inpatient status. Expected length of stay greater than 2 midnights. Transfer from [facility] ER, direct admit. Presented stable vital signs. EKG normal sinus rhythm. CT abdomen pelvis gallbladder wall thickening and/or pericholecystic fluid. S mall pleural effusions. WBC 17.8, elevated LFTs. UA small bilirubin, small blood. Covid negative #Cholecystitis MRCP negative for obstruction in spite of elevated liver enzymes Dr. Lancaster spoke with Dr. Gan and plan for HIDA scan today. If positive will need cholecystectomy vs. percutaneous tube placement Continue Zosyn IVPB. Morphine, Zofran as needed Protonix daily. Repeat CMP, CBC in a.m. #Transaminitis Likely related to problem #1. #DM2 Takes Lantus 26 units a.m./20 units at bedtime. ISS at home. Hold all antihyperglycemic home medications. Start moderate ISS. Every 6 hour checks. Reintroduce lower dose long acting insulin if running high #NSTEMI Patient with chest pain with inspiration yesterday. Troponin elevated. Likely Type 2 AMI due to infection Cardiology consulted. #CAD Takes metoprolol, Imdur, aspirin, Plavix at home. Holding Plavix. Restarted metoprolol and aspirin. #History of breast cancer Malignant breast cancer with osseous metastasis. Also with carcinomatosis. Last radiation (2016) Currently on oral chemotherapy. Followed by Dr. Lambert. #GERD Takes omeprazole unknown dosage at home. Started Protonix. #HTN Restarted home dose metoprolol. Continue to monitor BP. #HLD Takes 40 mg atorvastatin at home. Restarted home dose of atorvastatin. SCDs for DVT prophylaxis. Protonix for GI prophylaxis. Full code.
[2020-07-15] MEDS: Dextrose 5 %-0.45 % NaCl 1,000 ML IV SCH ×2 (08:25→16:35)
[2020-07-15 08:46] LABS: Critical Call Chem Troponin I RESULT DECREASING; Troponin I 0.851 ng/mL (< 0.028)
[2020-07-15] MEDS ORDERED: pyridOXINE 50 MG (B6) TAB PO SCH (09:00)
[2020-07-15 09:40] LABS: CKMB 3.3 ng/mL (0-6.6)
--- NOTE | 2020-07-15 11:10 | NM ---
Time: The medicine HIDA scan HISTORY: Carcinomatosis. Cholecystitis. TECHNIQUE: Patient was ministered 1.5 mcg of CCK intravenously, 30 minutes prior to injection of radi opharmaceutical. Patient was administered a total 5 mCi of technetium 99m mebrofenin intravenously FINDINGS: Appropriate uptake of the radiotracer by the liver. There is localization of radiotracer in the gallbladder. There is passage of radiotracer from the common bile duct into small bowel loops IMPRESSION: No scintigraphic evidence of cholecystitis.
[2020-07-15] MEDS: Potassium Chloride 10 MEQ TAB PO SCH (11:49)
[2020-07-15] MEDS: Magnesium Oxide 250 MG TAB PO SCH (11:50)
[2020-07-15] MEDS: Gabapentin 100 MG CAP PO SCH ×3 (11:51→21:05)
[2020-07-15] MEDS: Lisinopril 5 MG TAB PO SCH (11:51)
[2020-07-15] MEDS: Exemestane 25 MG TAB PO SCH (11:53)
[2020-07-15] MEDS: Calcium Carbonate 600 MG TAB PO SCH (11:53)
[2020-07-15] MEDS: Pantoprazole 40 MG VIAL IVP SCH (11:54)
[2020-07-15] MEDS: Brimonidine Tartrate 0.2% Ophth Soln 5 ml Bottle L EYE SCH ×2 (11:54→21:04)
[2020-07-15] MEDS: pyridOXINE 50 MG (B6) TAB PO SCH (11:55)
[2020-07-15] MEDS ORDERED: Promethazine 25 MG TAB PO PRN (12:35)
[2020-07-15] MEDS ORDERED: Digoxin 0.5 MG/2 ML AMP SLOW IVP SCH (15:30)
[2020-07-15] MEDS ORDERED: Diltiazem HCl 125 MG, Admixture Fee 1 EACH in Sodium Chloride 0.9% 100 ML IVPB SCH (15:30)
--- NOTE | 2020-07-15 15:34 | CON ---
DATE OF CONSULTATION: REASON FOR CONSULTATION: Elevated troponin. HISTORY OF PRESENT ILLNESS: Ms. Plummer is a 75-year-old woman who I seen and evaluated in the past. [facility] had [facility]. She complained of chills in addition to nausea, vomiting and diarrhea. She had a multitude of tests performed including a troponin, which was positive. Therefore, recommended to proceed to the emergency room at [facility]. She denies chest pain, pressure, or shortness of breath. She does have upper midepigastric pain, that is worse with palpation. She also has metastatic breast cancer with carcinomatosis. She recently underwent a noninvasive stress study performed in our office and was not found to have significant coronary artery disease. LVEF was 60%. PAST MEDICAL HISTORY: 1. CAD status post bypass surgery. 2. Edema. 3. PVCs. 4. Thyroid nodule. 5. Hypertension. 6. Glaucoma. 7. Previous IL. 8. Breast cancer with metastatic disease. HOME MEDICATIONS: Include: 1. Everolimus. 2. Aspirin. 3. Gabapentin. 4. Metoprolol. 5. Promethazine. 6. Omeprazole. 7. Potassium. 8. Voltaren. 9. Lisinopril. 10. Plavix. 11. Lasix. 12. Lantus. 13. Humalog. 14. Magnesium. 15. Vitamin B6. 16. Atorvastatin. 17. Isosorbide. 18. Calcium. 19. PreserVision. SURGICAL HISTORY: 1. CABG. 2. Hysterectomy. 3. Laminectomy. 4. Lumpectomy. SOCIAL HISTORY: No current tobacco or alcohol use. REVIEW OF SYSTEMS: A 10-point review of systems is reviewed as above, otherwise negative. PHYSICAL EXAMINATION: GENERAL: Patient is a pleasant woman who is in no acute distress. The patient appears their stated age. VITAL SIGNS: Blood pressure 140/81, pulse 98, and respirations 20. NEUROLOGIC: The patient is alert and oriented x3 with no focal neurologic deficits. HEENT: Sclerae without icterus. Mouth has moist mucous membranes with normal pallor. NECK: No JVD. Carotid upstroke brisk. No bruits bilaterally. LUNGS: Clear to auscultation with unlabored respirations. BACK: No scoliosis or kyphosis. CARDIAC: Regular rate and rhythm with normal S1 and S2. No S3 or S4 noted. No significant rubs, murmurs, thrills, or gallops noted throughout the precordium. PMI is not displaced. There is no parasternal heave. ABDOMEN: Soft, nontender, nondistended. No peritoneal signs present. No hepatosplenomegaly. No abnormal striae. EXTREMITIES: 2+ femoral and 2+ dorsalis pedis pulses. No cyanosis, clubbing, or edema. SKIN: No gross abnormalities. PERTINENT LABORATORY DATA: Hemoglobin 10.3 and hematocrit 32.1. Peak troponin 1.053 with a CK-MB of 3.3. IMPRESSION: 1. Elevated troponin. 2. Nausea and vomiting with chills and diarrhea. 3. Metastatic breast cancer. 4. Coronary artery disease. 5. Status post bypass surgery. RECOMMENDATIONS: I did review Ms. Plummer' recent angiogram in 2014. She does have small vessel disease mainly in the circ distribution. She has no current symptoms suggesting angina. Her CK-MB is normal. At this point, I recommend continue medical therapy. Her HIDA scan is pending. Her symptoms suggest gallbladder disease. Would continue with Plavix and aspirin. Would keep her blood pressure and heart rate controlled. If she does develop any further symptoms suggesting unstable angina, may proceed with angio, although long-term prognosis appears guarded. Job ID: [id number]
--- NOTE | 2020-07-15 16:10 | PRG ---
DATE OF SERVICE: 07/15/2020 SUBJECTIVE: Ms. Plummer has had improvement in her abdominal pain. She just has some soreness in the right upper quadrant today. No nausea today. No bowel movement today. OBJECTIVE: VITAL SIGNS: Temperature is 98.4, pulse 98 to 119, blood pressure 140/81. GENERAL: She is in no acute distress. Alert and oriented x3. LUNGS: Clear to auscultation bilaterally. HEART: Regular rate and rhythm without murmur. ABDOMEN: Nontender all over except for the right upper quadrant. Bowel sounds are present. EXTREMITIES: No lower extremity edema. LABORATORY DATA: White blood cell count 11.5, hemoglobin 10.3, platelets 172. INR 1.2. Bilirubin 1.6, down from 3.4 yesterday. AST 113, ALT 122, alkaline phosphatase 211. IMPRESSION: 1. Right upper quadrant pain. Her HIDA scan was negative for evidence of acute cholecystitis. Still her symptoms are suggestive of gallbladder and maybe that she just improved with antibiotics. There is inadequate evidence to pursue surgical intervention or cholecystostomy at this time. Her pain could be related to her cancer and carcinomatosis. 2. Abnormal liver tests. Her liver tests have decreased significantly today compared to yesterday. It is possible that she could have had some sludge or stone in her bile duct that is passed out. It is possible that she had acute cholecystitis that has improved with antibiotics. Her magnetic resonance cholangiopancreatography was negative for evidence of a bile duct stone. We will continue to follow the trend of her liver tests. 3. Atrial fibrillation. She was transferred to telemetry today due to atrial fibrillation. Her troponin was noted to be mildly elevated. RECOMMENDATIONS: 1. Recheck the trend of her liver test tomorrow morning. 2. Advance to a low-fat diet today. Job ID: [id number]
[2020-07-15] MEDS: Enoxaparin Sodium 60 MG/0.6 ML SYRINGE SC SCH (21:04)
[2020-07-15] MEDS: Atorvastatin Calcium 40 MG TAB PO SCH (21:05)
[2020-07-15] MEDS: guaiFENesin ER 600 MG TAB PO PRN (22:11)
--- NOTE | 2020-07-15 23:16 | CON ---
DATE OF CONSULTATION: 07/15/2020 CONSULTING PHYSICIAN: Dr. Kamaljit Lancaster. REASON FOR CONSULTATION: Abdominal pain, possible cholecystitis. HISTORY OF PRESENT ILLNESS: Ms. Plummer is a 75-year-old female. She is currently on the telemetry floor, where she is resting comfortably. She has a history of left breast cancer, treated with surgery in 2005. She was found to have a recurrence in 2017 with evidence of metastatic disease to bone and abdomen. She has been treated since then with oral medications under the care of Dr. Lambert. She has a recent history of some abdominal pain, for which a HIDA scan was obtained on May 23 ordered by her primary care physician, Dr. Cannon. This scan was essentially normal with a 90% ejection fraction. I do not see evidence of a prior gallbladder ultrasound. Two days ago, early in the morning, she developed abdominal pain with vomiting, diarrhea, and sweating. She was recommended to have a coronavirus test which was obtained at outside emergency room facility. The coronavirus test was negative, however, evaluation performed at that facility included a CT scan and laboratory studies. Her CT scan reportedly revealed findings potentially consistent with acalculous cholecystitis. The patient was subsequently transferred to this facility where she was admitted by the hospitalist service and consultation was obtained with Dr. Lancaster of Gastroenterology. An abdominal MRI was obtained upon admission. This MRI showed distended gallbladder with gallbladder wall thickening, potentially consistent with acalculous cholecystitis. She had evidence of peritoneal carcinomatosis in the left adrenal metastatic lesion and osseous metastatic disease. Her laboratory studies were significant for leukocytosis with a white blood cell count of 16.4 and 38% bandemia. Her liver function tests were all elevated with bilirubin of 3.4, alkaline phosphatase of 258, and transaminitis elevation. There was also concern about troponin elevation. The patient was admitted to the hospital, started on IV antibiotics, and Dr. Lancaster was consulted. I discussed the case with him in detail yesterday evening. In light of her known intraabdominal metastatic disease and lack of evidence of cholelithiasis, I recommended an attempt at conservative management. I recommended a HIDA scan to be obtained this morning to evaluate for cholecystitis. Decision will be made if this is positive regarding surgical versus nonsurgical intervention for her cholecystitis. Her HIDA scan was normal with normal filling of the liver and gallbladder which ruled out possibility of cholecystitis. Additionally, today, her laboratory studies are significantly improved. Her bilirubin is down to 1.6. Her alkaline phosphatase and transaminases have decreased remarkably as well. Her white blood cell count dropped from 16 down to 11.5 and her hemoglobin stable at 10.3. She currently denies any significant abdominal pain and tells me she is somewhat hungry. She denies vomiting or bowel movement since her admission to the hospital 2 days ago. PAST MEDICAL HISTORY: 1. Metastatic breast cancer. 2. Coronary artery disease. 3. Diabetes mellitus. 4. Gastroesophageal reflux disease. 5. Hypertension. 6. Hypercholesterolemia. PAST SURGICAL HISTORY: 1. Left breast lumpectomy in 2005 at [facility]. 2. Coronary artery bypass graft. 3. Hysterectomy. PERSONAL AND SOCIAL HISTORY: She is . She lives in [place]. She does not drink or smoke. She had 2 children, one of whom is . Her primary care physician is Dr. Parminder Cannon. MEDICATIONS: Currently include; 1. Plavix. 2. Everolimus. 3. Exemestane. 4. Aspirin. 5. Gabapentin. 6. Omeprazole. 7. Atorvastatin. 8. Isosorbide. 9. Lisinopril. 10. Metoprolol. 11. Pyridoxine. 12. Insulin. REVIEW OF SYSTEMS: Ten-system review is otherwise negative. FAMILY HISTORY: Noncontributory. PHYSICAL EXAMINATION: VITAL SIGNS: Her weight is 172 pounds with a BMI of about 32. She is afebrile. Her pulse has varied from 92 to 120, but has largely been under 100. Blood pressure is currently 135/71. GENERAL: She is a well-developed, well-nourished, pleasant black female, resting in bed, in no acute distress. She is alert and oriented x3. HEAD, EYES, EARS, NOSE, AND THROAT: Unremarkable. NECK: Supple without mass or tenderness. LUNGS: Clear to auscultation throughout. CARDIAC: Regular rate and rhythm without murmur. ABDOMEN: Soft. Bowel sounds are present and normoactive. She has minimal right upper quadrant tenderness, only to deep palpation. EXTREMITIES: Unremarkable. LABORATORY DATA: As mentioned above. ASSESSMENT: The patient may have had acalculous cholecystitis. The etiology of this is uncertain. It could in some fashion be related to her metastatic breast cancer, perhaps to some of her medications. Either way, she currently has no evidence of cholecystitis. Her HIDA scan ruled this out from a radiologic standpoint and her clinical examination is apparently markedly improved as her laboratory studies. Dr. Lancaster has already seen her today and advance her up to a low-fat diet, with which I agree. I do not think at this point that she requires further evaluation or treatment. When she is tolerating a diet, she should be safe for discharge home. Should she develop further gallbladder-related problems, I would be happy to see her at anytime. Job ID: [id number]
[2020-07-16] MEDS: Piperacillin/Tazobactam 3.375 GM in Sodium Chloride 0.9% 100 ML IVPB SCH ×4 (04:46→22:58)
[2020-07-16 05:24] LABS: ALT (SGPT) 86 U/L (8-55); AST (SGOT) 71 U/L (5-34); Alkaline Phosphatase 191 U/L (40-110); Anion Gap 13 mmol/L (10-20); BUN (Urea Nitrogen) 8 mg/dL (9.8-20.1); Bilirubin, Total 1.2 mg/dL (0.2-1.2); Calc. Creatinine Clearance 81 mL/min (70-130); Carbon Dioxide 23 mmol/L (23-31); Chloride 105 mmol/L (98-107); Estimated GFR-MDRD Greater than 90; Globulin 3.1 g/dL (2.4-3.5); Glucose 176 mg/dL (83-110); Potassium 3.4 mmol/L (3.5-5.1); Protein, Total 6.1 g/dL (6.0-8.3); Sodium 138 mmol/L (136-145)
[2020-07-16 05:52] LABS: Band 27 % (5-11); Hemoglobin 10.5 g/dL (12.0-16.0); Lymphocytes 6 % (21-51); MDiff Complete? YES; Mean Corpuscular HGB CONC 32.3 g/dL (32.0-36.0); Mean Corpuscular Hemoglobin 29.6 pg (27.0-31.0); Mean Corpuscular Volume 91.6 fL (78.0-98.0); Mean Platelet Volume 7.3 fL (7.4-10.4); Monocytes 2 % (0-10); Neutrophil 65 % (42-75); Platelet Count 189 thou/uL (130-400); RBC Distribution Width 14.4 % (11.5-14.5); Red Blood Cell (RBC) Count 3.54 mill/uL (4.20-5.40)
[2020-07-16] MEDS: Furosemide 20 MG TAB PO SCH (06:02)
--- NOTE | 2020-07-16 07:47 | PDOC.HOSPP ---
- Subjective Encounter Date: 07/16/20 Encounter Time: 09:50 Subjective: Patient had some SOB last night. Does have hx CHF and was getting IV fluids. Fluids d/c'd and CXR obtained showing slightly worse effusion and congestive failure. Breathing well off O2 this morning. On her home Lasix. Abdominal pain much improved. Had palpitations with the Afib c RVR yesterday. Similar to episodes she previously had at home, often at night that would keep her from going to sleep until they would resolve. No further palpitations overnight or this morning. - Objective Vital Signs & Weight: Vital Signs (12 hours) Temp Pulse Resp BP BP Pulse Ox 07/16/20 05:53 98 07/16/20 04:00 98.8 F 81 14 149/68 H 99 07/15/20 20:05 99 07/15/20 20:00 98.7 F 81 16 115/95 H 97 Weight Admit Weight 172 lb 8 oz Weight 172 lb 8 oz I&O: 07/15/20 07/16/20 07/17/20 06:59 06:59 06:59 Intake Total 1325 1230 Balance 1325 1230 Result Diagrams: 07/16/20 04:34 07/16/20 04:34 Additional Labs: Accuchecks 07/16/20 07/16/20 07/15/20 06:13 00:15 18:17 POC Glucose 168 H 220 H 141 H 07/15/20 11:48 POC Glucose 127 H Hospitalist ROS - Review of Systems Constitutional: denies: fever, chills Respiratory: reports: shortness of breath. denies: cough Cardiovascular: denies: chest pain, palpitations Gastrointestinal: denies: nausea, vomiting, abdominal pain - Medication Medications: Active Medications Generic Name Dose Route Start Last Admin Trade Name Freq PRN Reason Stop Dose Admin Acetaminophen 650 mg 07/14/20 00:29 07/15/20 05:00 Acetaminophen 325 Mg Tab PO 650 mg Q4H PRN Administration Headache/Fever/Mild Pain (1-3) Atorvastatin Calcium 40 mg 07/15/20 21:00 07/15/20 21:05 Atorvastatin Calcium 40 Mg Tab PO 40 mg HS YANET Administration Brimonidine Tartrate 1 drop 07/14/20 21:00 07/15/20 21:04 Brimonidine Tartrate 0.2% Ophth Soln 5 Ml Bottle L EYE 1 drop BID YANET Administration Calcium Carbonate 600 mg 07/15/20 09:00 07/15/20 11:53 Calcium Carbonate 600 Mg Tab PO 600 mg DAILY YANET Administration Enoxaparin Sodium 60 mg 07/15/20 21:00 07/15/20 21:04 Enoxaparin Sodium 60 Mg/0.6 Ml Syringe SC 60 mg 0900,2100 YANET Administration Exemestane 25 mg 07/15/20 09:00 07/15/20 11:53 Exemestane 25 Mg Tab PO 25 mg DAILY YANET Administration Furosemide 40 mg 07/16/20 06:00 07/16/20 06:02 Furosemide 20 Mg Tab PO 40 mg 0600 YANET Administration Gabapentin 100 mg 07/14/20 21:00 07/15/20 21:05 Gabapentin 100 Mg Cap PO 100 mg TID YANET Administration Guaifenesin 600 mg 07/15/20 21:50 07/15/20 22:11 Guaifenesin Er 600 Mg Tab PO 600 mg Q12H PRN Administration Cough Piperacillin Sod/Tazobactam 100 mls @ 200 mls/hr 07/14/20 04:00 07/16/20 04:46 Sod 3.375 gm/ Sodium Chloride IVPB 100 mls 0400,1000,1600,2200 YANET Administration Dextrose/Sodium Chloride 1,000 mls @ 75 mls/hr 07/14/20 05:45 07/15/20 16:35 D5 1/2 Ns IV 1,000 mls .[id number] YANET Administration Diltiazem HCl 125 mg/ 125 mls @ 5 mls/hr 07/15/20 15:30 07/15/20 16:35 Miscellaneous Medication 1 IVPB 125 mls each/ Sodium Chloride INF YANET Administration Protocol Isosorbide Mononitrate 15 mg 07/14/20 09:00 07/15/20 11:48 Isosorbide Mononitrate Er 30 Mg Tab PO 15 mg DAILY YANET Administration Lisinopril 5 mg 07/15/20 09:00 07/15/20 11:51 Lisinopril 5 Mg Tab PO 5 mg DAILY YANET Administration Magnesium Oxide 500 mg 07/15/20 09:00 07/15/20 11:50 Magnesium Oxide 250 Mg Tab PO 500 mg DAILY YANET Administration Metoprolol Succinate 100 mg 07/14/20 09:00 07/15/20 11:50 Metoprolol Succinate Xl 25 Mg Tab PO 100 mg DAILY YANET Administration Morphine Sulfate 2 mg 07/14/20 00:35 07/14/20 21:39 Morphine 2 Mg/Ml Vial SLOW IVP 2 mg Q4H PRN Administration Pain Ondansetron HCl 4 mg 07/14/20 00:29 07/14/20 20:21 Ondansetron Odt 4 Mg Tab PO 4 mg Q6H PRN Administration Nausea/Vomiting Ondansetron HCl 4 mg 07/14/20 00:29 07/14/20 14:54 Ondansetron Pf 4 Mg/2 Ml Vial IVP 4 mg Q6H PRN Administration Nausea/Vomiting Pantoprazole Sodium 40 mg 07/14/20 09:00 07/15/20 11:54 Pantoprazole 40 Mg Vial IVP 40 mg DAILY YANET Administration Potassium Chloride 5 meq 07/15/20 09:00 07/15/20 11:49 Potassium Chloride 10 Meq Tab PO 5 meq DAILY YANET Administration Pyridoxine HCl 100 mg 07/15/20 09:00 07/15/20 11:55 Pyridoxine 50 Mg (B6) Tab PO 100 mg DAILY YANET Administration Sodium Chloride 10 ml 07/14/20 00:29 07/14/20 16:08 Flush - Normal Saline 10 Ml Syringe IVF 10 ml PRN PRN Administration Saline Flush - Exam General Appearance: NAD, awake alert ENT: moist mucosa Heart: RRR, no murmur, no gallops, no rubs Respiratory: CTAB, no wheezes, no rales, no ronchi, no tachypnea Gastrointestinal: soft, non-distended, normal bowel sounds Gastrointestinal - other findings: mild TTP RUQ Psychiatric: normal affect, normal behavior, A&O x 3 Hosp A/P - Plan 75/F with PMH CAD, breast cancer with mets, GERD, DM 2 presents for abdominal pain. Admit to oncology floor, inpatient status. Expected length of stay greater than 2 midnights. Transfer from [facility] ER, direct admit. Presented stable vital signs. EKG normal sinus rhythm. CT abdomen pelvis gallbladder wall thickening and/or pericholecystic fluid. Small pleural effusions. WBC 17.8, elevated LFTs. UA small bilirubin, small blood. Covid negative #Cholecystitis MRCP negative for obstruction in spite of elevated liver enzymes HIDA now negative, symptoms improving, and LFTs trending down. Possibly resolving with abx. No need for surgical intervention. Continue Zosyn IVPB, may consider conversion to po abx when stable for discharge. Morphine, Zofran as needed Protonix daily. #Transaminitis Likely related to problem #1. Improving. #DM2 Takes Lantus 26 units a.m./20 units at bedtime. ISS at home. Hold all antihyperglycemic home medications. Start moderate ISS. Every 6 hour checks. Reintroduce lower dose long acting insulin if running high #NSTEMI- Type 2 AMI Patient with chest pain with inspiration yesterday. Troponin elevated. Type 2 AMI due to infection #Afib with RVR- Likely due to above. Resolved while getting IV yesterday, so Dr. Vernon cancelled cardizem bolus and just started the drip. #CAD Takes metoprolol, Imdur, aspirin, Plavix at home. Holding Plavix. Restarted metoprolol and aspirin. On Lasix. Fluids d/c'd. #History of breast cancer Malignant breast cancer with osseous metastasis. Also with carcinomatosis. Last radiation (2016) Currently on oral chemotherapy. Followed by Dr. Lambert. #GERD Takes omeprazole unknown dosage at home. Started Protonix. #HTN Restarted home dose metoprolol. Continue to monitor BP. #HLD Takes 40 mg atorvastatin at home. Restarted home dose of atorvastatin. SCDs for DVT prophylaxis. Protonix for GI prophylaxis. Full code. Possible discharge on oral antibiotics once stable from a cardiac standpoint.
--- NOTE | 2020-07-16 08:52 | RAD ---
EXAM: Chest one view: HISTORY: Shortness of breath, fluid overload COMPARISON: 03/10/2019 FINDINGS: Heart size: Minimal cardiomegaly. Postop midline sternotomy. Lungs: Minimal bilateral vascular congestion. Evidence for bilateral pleural effusions. IMPRESSION: Pleural effusions and vascular congestion developing or more prominent than prior study. Continued ort-term follow-up.
[2020-07-16] MEDS: Brimonidine Tartrate 0.2% Ophth Soln 5 ml Bottle L EYE SCH ×2 (09:40→19:49)
[2020-07-16] MEDS: Calcium Carbonate 600 MG TAB PO SCH (09:40)
[2020-07-16] MEDS: Enoxaparin Sodium 60 MG/0.6 ML SYRINGE SC SCH ×2 (09:41→19:49)
[2020-07-16] MEDS: Exemestane 25 MG TAB PO SCH (09:41)
[2020-07-16] MEDS: Magnesium Oxide 250 MG TAB PO SCH (09:42)
[2020-07-16] MEDS: Lisinopril 5 MG TAB PO SCH (09:43)
[2020-07-16] MEDS: pyridOXINE 50 MG (B6) TAB PO SCH (09:43)
[2020-07-16] MEDS: Pantoprazole 40 MG VIAL IVP SCH (09:43)
[2020-07-16] MEDS: Gabapentin 100 MG CAP PO SCH ×3 (09:48→19:47)
[2020-07-16] MEDS ORDERED: Potassium Chloride 10 MEQ TAB PO SCH (10:00)
[2020-07-16] MEDS: Potassium Chloride 10 MEQ TAB PO SCH (11:24)
[2020-07-16] MEDS: HumaLOG 300 UNITS/3 ML VIAL SC PRN (12:43)
[2020-07-16] MEDS: Dextrose 5 %-0.45 % NaCl 1,000 ML IV SCH (15:50)
[2020-07-16] MEDS: guaiFENesin ER 600 MG TAB PO PRN (15:58)
[2020-07-16] MEDS: Atorvastatin Calcium 40 MG TAB PO SCH (19:47)
[2020-07-16] MEDS: Morphine 2 MG/ML VIAL SLOW IVP PRN (19:48)
[2020-07-16] MEDS ORDERED: Albuterol Sulfate 2.5 mg/3 ml Neb NEB PRN (23:14)
[2020-07-17] MEDS ORDERED: Diltiazem HCl 125 MG, Admixture Fee 1 EACH in Sodium Chloride 0.9% 100 ML IVPB SCH ×2 (02:30→08:20)
[2020-07-17] MEDS: Furosemide 20 MG TAB PO SCH (06:12)
[2020-07-17] MEDS: Piperacillin/Tazobactam 3.375 GM in Sodium Chloride 0.9% 100 ML IVPB SCH ×4 (06:14→23:05)
[2020-07-17] MEDS: HumaLOG 300 UNITS/3 ML VIAL SC PRN ×2 (07:44→12:03)
--- NOTE | 2020-07-17 07:57 | PRG ---
DATE OF SERVICE: 07/16/2020 SUBJECTIVE: This is a 75-year-old female with metastatic breast cancer . The patient presents with abdominal pain and nausea. The pain was in the right upper quadrant. She had undergone a HIDA scan, which was negative. She was seen by Dr. Tom Gan and he did not recommend surgery at this point in time as her symptoms have resolved. She is eating well. She is tolerating diet. No nausea, no vomiting. Abdominal pain has much resolved. She has no complaints. PHYSICAL EXAMINATION: GENERAL: She appears comfortable. She is obese. VITAL SIGNS: Stable. She is afebrile. Pulse is 80, blood pressure is 140/60. CARDIOVASCULAR: Normal heart sounds. LUNGS: Clear to auscultation. ABDOMEN: Soft. Abdomen is nondistended. Abdomen is nontender. CLINICAL IMPRESSION: 1. Acalculous cholecystitis, resolved. 2. Normal HIDA scan. 3. Normal MRI of the abdomen. 4. Breast cancer, metastatic disease. RECOMMENDATION: From GI standpoint, she can be discharged home tomorrow. The patient was advised to call Dr. Gan if her symptoms return. Job ID: [id number]
--- NOTE | 2020-07-17 08:13 | RAD ---
Chest one view HISTORY: Tachycardia. COMPARISON: 07/16/2020. FINDINGS: Cardiac silhouette is magnified by projection. Left margin partially obscured by pleural an d parenchymal opacity similar in appearance to the prior study. Mediastinum is midline with postoperative changes. No lobar consolidation or evidence of pneumothorax. IMPRESSION : Small left pleural effusion, basilar atelectasis, and other findings are stable.
--- NOTE | 2020-07-17 08:25 | PDOC.HOSPP ---
- Subjective Encounter Date: 07/17/20 Encounter Time: 08:24 Subjective: Was notified by nursing staff that heart rate is 140 on 5 diltiazem and telemetry showing afib. The patient denies palpitations, but she felt she was wheezy all night. She denies shortness of breath currently She states her abdomen is sore but improved. She has chronic abdominal pain from multiple myeloma which was made worst by vomiting on Saturday. She has been advanced to a low fat diet, this is not giving her abdominal pain. She denies nausea or vomiting - Objective Vital Signs & Weight: Vital Signs (12 hours) Temp Pulse Resp BP Pulse Ox 07/17/20 07:42 97.8 F 144 H 20 142/73 H 97 07/17/20 03:20 98.7 F 140 H 14 135/74 94 L 07/17/20 00:41 143 H 141/79 H 96 07/16/20 23:17 140 H 18 177/84 H 98 Weight Admit Weight 172 lb 8 oz Weight 172 lb 8 oz I&O: 07/16/20 07/17/20 07/18/20 06:59 06:59 06:59 Intake Total 1920 1110 Output Total 700 Balance 1920 410 Result Diagrams: 07/17/20 08:34 07/16/20 04:34 Additional Labs: Accuchecks 07/17/20 07/16/20 07/16/20 05:58 18:24 12:16 POC Glucose 208 H 150 H 215 H Hospitalist ROS - Review of Systems Constitutional: denies: fever, chills - Medication Medications: Active Medications Generic Name Dose Route Start Last Admin Trade Name Howie PRN Reason Stop Dose Admin Acetaminophen 650 mg 07/14/20 00:29 07/15/20 05:00 Acetaminophen 325 Mg Tab PO 650 mg Q4H PRN Administration Headache/Fever/Mild Pain (1-3) Atorvastatin Calcium 40 mg 07/15/20 21:00 07/16/20 19:47 Atorvastatin Calcium 40 Mg Tab PO 40 mg HS YANET Administration Brimonidine Tartrate 1 drop 07/14/20 21:00 07/16/20 19:49 Brimonidine Tartrate 0.2% Ophth Soln 5 Ml Bottle L EYE 1 drop BID YANET Administration Calcium Carbonate 600 mg 07/15/20 09:00 07/16/20 09:40 Calcium Carbonate 600 Mg Tab PO 600 mg DAILY YANET Administration Enoxaparin Sodium 60 mg 07/15/20 21:00 07/16/20 19:49 Enoxaparin Sodium 60 Mg/0.6 Ml Syringe SC 60 mg 09,2099 YANET Administration Exemestane 25 mg 07/15/20 09:00 07/16/20 09:41 Exemestane 25 Mg Tab PO 25 mg DAILY YANET Administration Furosemide 40 mg 07/16/20 06:00 07/17/20 06:12 Furosemide 20 Mg Tab PO 40 mg 0600 YANET Administration Gabapentin 100 mg 07/14/20 21:00 07/16/20 19:47 Gabapentin 100 Mg Cap PO 100 mg TID YANET Administration Guaifenesin 600 mg 07/15/20 21:50 07/16/20 15:58 Guaifenesin Er 600 Mg Tab PO 600 mg Q12H PRN Administration Cough Piperacillin Sod/Tazobactam 100 mls @ 200 mls/hr 07/14/20 04:00 07/17/20 06:14 Sod 3.375 gm/ Sodium Chloride IVPB 100 mls 0400,1000,1600,2200 YANET Administration Insulin Human Lispro 0 units 07/14/20 00:38 07/17/20 07:44 Humalog 300 Units/3 Ml Vial SC 4 unit .MODERATE SLIDING SC PRN Administration Moderate Correctional Scale Isosorbide Mononitrate 15 mg 07/14/20 09:00 07/16/20 09:43 Isosorbide Mononitrate Er 30 Mg Tab PO 15 mg DAILY YANET Administration Lisinopril 5 mg 07/15/20 09:00 07/16/20 09:43 Lisinopril 5 Mg Tab PO 5 mg DAILY YANET Administration Magnesium Oxide 500 mg 07/15/20 09:00 07/16/20 09:42 Magnesium Oxide 250 Mg Tab PO 500 mg DAILY YANET Administration Metoprolol Succinate 100 mg 07/14/20 09:00 07/16/20 09:48 Metoprolol Succinate Xl 25 Mg Tab PO 100 mg DAILY YANET Administration Morphine Sulfate 2 mg 07/14/20 00:35 07/16/20 19:48 Morphine 2 Mg/Ml Vial SLOW IVP 2 mg Q4H PRN Administration Pain Ondansetron HCl 4 mg 07/14/20 00:29 07/14/20 20:21 Ondansetron Odt 4 Mg Tab PO 4 mg Q6H PRN Administration Nausea/Vomiting Ondansetron HCl 4 mg 07/14/20 00:29 07/14/20 14:54 Ondansetron Pf 4 Mg/2 Ml Vial IVP 4 mg Q6H PRN Administration Nausea/Vomiting Pantoprazole Sodium 40 mg 07/14/20 09:00 07/16/20 09:43 Pantoprazole 40 Mg Vial IVP 40 mg DAILY YANET Administration Pyridoxine HCl 100 mg 07/15/20 09:00 07/16/20 09:43 Pyridoxine 50 Mg (B6) Tab PO 100 mg DAILY YANET Administration Sodium Chloride 10 ml 07/14/20 00:29 07/14/20 16:08 Flush - Normal Saline 10 Ml Syringe IVF 10 ml PRN PRN Administration Saline Flush - Exam General Appearance: NAD, awake alert Eye: PERRL, anicteric sclera ENT: normocephalic atraumatic, no oropharyngeal lesions Neck: no JVD Heart: no murmur, no gallops, no rubs, irregular Respiratory: no wheezes, no rales, no ronchi Gastrointestinal: soft, non-distended, normal bowel sounds Gastrointestinal - other findings: RUQ tenderness Extremities: no cyanosis, no clubbing, no edema Skin: normal turgor, no lesions, no rashes Neurological: cranial nerve grossly intact, normal sensation to touch, no focal deficits, no new deficit Musculoskeletal: normal tone, normal strength, no muscle wasting Psychiatric: normal affect, normal behavior, A&O x 3 Hosp A/P - Plan Chest Xray 07/17: left pleural and parenchymal opacity similar in appearance HIDA scan: normal MRI of abdomen: gallbladder distension may reflect acalculous cholecystitis. Left adrenal metastatic lesion and osseous metastatic disease with mild ascites . Stable peritoneal carcinomatosis This is a 75 year old female who presented ot the hospital with nausea, vomiting. She had transaminitis, and concern for cholecystitis on ultrasound. She has been placed on IV antibiotics with improvement. Hospital course has been complicated by atrial fibrillation Atrial fibrillation -repeat EKG. Currently on diltiazem of 5. Discussed with cardiology, will increase to 10 - digoxin loading ordered by cardiology - chest X ray stable, continue oral lasix - replace potassium to keep > 4, Mg > 2 Abdominal pain - possibly from peritoneal carcinomatosis vs gallbladder distension - MRI of abdomen showed acalculous cholecystitis. HIDA scan negative. It was also negative in April - surgery consulted, conservative management for now. Continue IV zosyn - will repeat abdominal US to see if gallbladder distension has improved Multiple myeloma stage IV - continue home medicine. Last CT scan of abdomen showed stable disease - follows with Dr. Lambert as an outpatient Transaminitis - improving, will continue to trend. - repeat abdominal ultrasound Hypokalemia - potassium 3.2, will replace
[2020-07-17] MEDS ORDERED: Digoxin 0.5 MG/2 ML AMP SLOW IVP SCH (08:30)
[2020-07-17] MEDS ORDERED: Digoxin 0.5 MG/2 ML AMP ONE (08:33)
[2020-07-17 08:46] LABS: Hemoglobin 12.1 g/dL (12.0-16.0); Mean Corpuscular HGB CONC 33.7 g/dL (32.0-36.0); Mean Corpuscular Hemoglobin 30.6 pg (27.0-31.0); Mean Corpuscular Volume 90.8 fL (78.0-98.0); Mean Platelet Volume 7.3 fL (7.4-10.4); Platelet Count 215 thou/uL (130-400); RBC Distribution Width 14.6 % (11.5-14.5); Red Blood Cell (RBC) Count 3.97 mill/uL (4.20-5.40); White Blood Cell (WBC) Count 5.6 thou/uL (4.8-10.8)
[2020-07-17] MEDS: EVEROLIMUS 7.5 MG PO SCH (08:46)
[2020-07-17] MEDS: Brimonidine Tartrate 0.2% Ophth Soln 5 ml Bottle L EYE SCH ×2 (08:47→20:09)
[2020-07-17] MEDS: Enoxaparin Sodium 60 MG/0.6 ML SYRINGE SC SCH ×2 (08:48→20:09)
[2020-07-17] MEDS: Pantoprazole 40 MG VIAL IVP SCH (08:48)
[2020-07-17] MEDS: Magnesium Oxide 250 MG TAB PO SCH (08:49)
[2020-07-17] MEDS: Gabapentin 100 MG CAP PO SCH ×3 (08:50→20:10)
[2020-07-17] MEDS: pyridOXINE 50 MG (B6) TAB PO SCH (08:50)
[2020-07-17] MEDS: Potassium Chloride 10 MEQ TAB PO SCH (08:51)
[2020-07-17] MEDS: Exemestane 25 MG TAB PO SCH (08:51)
[2020-07-17] MEDS: Lisinopril 5 MG TAB PO SCH (08:51)
[2020-07-17 09:02] LABS: ALT (SGPT) 68 U/L (8-55); AST (SGOT) 56 U/L (5-34); Albumin 3.3 g/dL (3.4-4.8); Alkaline Phosphatase 184 U/L (40-110); Anion Gap 14 mmol/L (10-20); BUN (Urea Nitrogen) 9 mg/dL (9.8-20.1); Bilirubin, Total 1.2 mg/dL (0.2-1.2); Calc. Creatinine Clearance 79 mL/min (70-130); Calcium 8.3 mg/dL (7.8-10.44); Carbon Dioxide 28 mmol/L (23-31); Chloride 101 mmol/L (98-107); Estimated GFR-MDRD Greater than 90; Globulin 3.6 g/dL (2.4-3.5); Glucose 223 mg/dL (83-110); Magnesium 1.7 mg/dL (1.6-2.6); Potassium 3.2 mmol/L (3.5-5.1); Protein, Total 6.9 g/dL (6.0-8.3); Sodium 140 mmol/L (136-145)
[2020-07-17] MEDS: Calcium Carbonate 600 MG TAB PO SCH (09:06)
[2020-07-17] MEDS ORDERED: Magnesium 2 GM/50 ML 2 GM in Premix Bag 1 BAG IVPB SCH (10:30)
[2020-07-17] MEDS ORDERED: Potassium Chloride 40 MEQ in Sodium Chloride 0.9% 250 ML 250 ML IVPB SCH (10:30)
[2020-07-17] MEDS ORDERED: Metoprolol Tartrate 5 MG/5 ML VIAL IVP PRN ×2 (12:18→13:25)
[2020-07-17] MEDS ORDERED: Metoprolol Tartrate 5 MG/5 ML VIAL IVP SCH (12:30)
--- NOTE | 2020-07-17 13:28 | PRG ---
DATE OF SERVICE: 07/17/2020 SUBJECTIVE: This is a 75-year-old female with metastatic breast cancer, presented with abdominal pain and nausea. She has had extensive workup done including an MRI, HIDA scan, both were negative. It was felt that the patient could have an acalculous cholecystitis. She was seen by Dr. Tom Gan, who did not recommend any surgery as abdominal pain is improved. The patient has been doing better. She has no more abdominal pain or nausea. She is tolerating diet. She has some IV Lasix this morning, still has some cramping pain after the IV Lasix was given. The pain is different from the pain what she was having before. OBJECTIVE: GENERAL: She is comfortable, in no distress. VITAL SIGNS: Afebrile, pulse rate is 144, blood pressure 126/68. CARDIOVASCULAR SYSTEM: Lungs within normal limits. ABDOMEN: Soft to palpate. Abdomen is nontender at the present time. Active bowel sounds. IMPRESSION: 1. Abdominal pain, resolved. 2. Atrial fibrillation with fast ventricular rate. RECOMMENDATIONS: 1. Diet as tolerated. 2. Control of atrial fibrillation with adequate medical therapy. Job ID: [id number]
--- NOTE | 2020-07-17 15:51 | ULT ---
Exam: Right upper quadrant ultrasound: HISTORY: Right upper quadrant tenderness, nausea and vomiting COMPARISON: None FINDINGS: Visualized liver:Minimally heterogeneous liver Gallbladder:There is evidence for a somewhat bilobed shaped abnormal opacity in the dependent portion of the gallbladder measuring approximately 1.6 x 2.1 cm which is not mobile possibly representing some type of nonmobile sludge ball or a adherent large gallstone. I think this would be much less lik [place] to represent some other type of soft tissue nodular areas such as a very large polyp or small gallbladder mass. Common bile duct:Within normal limits. The visualized pancreas and right kidney are unremarkable. Evidence for right pleural effusion. IMPRESSION: Fairly large oblong nonmobile opacity in the dependent portion of the gallbladder possibly a large sl udge ball. No significant gallbladder wall thickening or common duct dilatation.
[2020-07-17] MEDS: Metoprolol Tartrate 5 MG/5 ML VIAL IVP PRN (16:54)
[2020-07-17] MEDS: Atorvastatin Calcium 40 MG TAB PO SCH (20:10)
[2020-07-17] MEDS: guaiFENesin ER 600 MG TAB PO PRN (20:11)
[2020-07-17] MEDS: Diltiazem HCl 125 MG, Admixture Fee 1 EACH in Sodium Chloride 0.9% 100 ML IVPB SCH (22:20)
[2020-07-18] MEDS: Metoprolol Tartrate 5 MG/5 ML VIAL IVP PRN ×2 (00:23→06:17)
[2020-07-18] MEDS: Piperacillin/Tazobactam 3.375 GM in Sodium Chloride 0.9% 100 ML IVPB SCH ×3 (04:41→15:27)
[2020-07-18] MEDS: Furosemide 20 MG TAB PO SCH (04:53)
[2020-07-18] MEDS: HumaLOG 300 UNITS/3 ML VIAL SC PRN ×3 (06:07→17:45)
[2020-07-18] MEDS: Diltiazem HCl 125 MG, Admixture Fee 1 EACH in Sodium Chloride 0.9% 100 ML IVPB SCH ×2 (06:40→15:27)
[2020-07-18 08:11] VITALS: BMI 31.2
[2020-07-18] MEDS: EVEROLIMUS 7.5 MG PO SCH (08:33)
[2020-07-18] MEDS: Pantoprazole 40 MG VIAL IVP SCH (08:34)
[2020-07-18] MEDS: Brimonidine Tartrate 0.2% Ophth Soln 5 ml Bottle L EYE SCH ×2 (08:34→22:25)
[2020-07-18] MEDS: Potassium Chloride 10 MEQ TAB PO SCH (08:35)
[2020-07-18] MEDS: Enoxaparin Sodium 60 MG/0.6 ML SYRINGE SC SCH ×2 (08:35→22:25)
[2020-07-18] MEDS: Calcium Carbonate 600 MG TAB PO SCH (08:35)
[2020-07-18] MEDS: Magnesium Oxide 250 MG TAB PO SCH (08:35)
[2020-07-18] MEDS: Exemestane 25 MG TAB PO SCH (08:35)
[2020-07-18] MEDS: pyridOXINE 50 MG (B6) TAB PO SCH (08:36)
[2020-07-18] MEDS: Gabapentin 100 MG CAP PO SCH ×3 (08:36→22:26)
[2020-07-18] MEDS: Lisinopril 5 MG TAB PO SCH (08:37)
--- NOTE | 2020-07-18 12:44 | CON ---
DATE OF CONSULTATION: HISTORY OF PRESENT ILLNESS: This is a pleasant 75-year-old female, who presented to an outside stand-alone emergency room with nausea, vomiting, abdominal pain, and diarrhea. She had a mild elevation in her troponin, was transferred to [facility] for further evaluation. Cardiology has evaluated her and her recent heart catheterization in 2014 was reviewed. In addition, no anginal symptoms. They recommended continued medical management. No catheterization was performed or was planned. Her studies were concerning for cholecystitis. There is a General Surgery consult. Her HIDA scan did not suggest any ongoing cholecystitis and her symptoms have markedly improved. She was seen to go into atrial flutter with rapid ventricular rates requiring a high-dose diltiazem IV drip in addition to IV Lopressor pushes for rate control. Though, she has not been formally diagnosed with this in the past. She has felt the symptoms for sometime in a paroxysmal fashion. She largely endorses fatigue, palpitations, heart racing, weakness, and occasional chest discomfort when she feels her heart is racing. EP consultation was requested for further management of her difficult to rate control atrial flutter. PAST MEDICAL HISTORY: 1. Coronary artery disease status post coronary artery bypass graft. 2. PVCs. 3. Thyroid nodule. 4. Hypertension. 5. Glaucoma. 6. Prior AK. 7. Breast cancer with metastatic disease. 8. Preserved LVEF 60% with recent noninvasive stress test. Negative for significant coronary artery disease on that stress test. 9. Type 2 diabetes. 10. Neuropathy. ALLERGIES: SULFA AND SULFA BASED MEDICATIONS. HOME MEDICATIONS: 1. Lantus. 2. Humalog. 3. Brimonidine ophthalmic solution. 4. Everolimus. 5. Vitamin D. 6. Omeprazole. 7. Magnesium. 8. Gabapentin. 9. Plavix. 10. Calcium. 11. Aspirin. 12. Exemestane. 13. Potassium. 14. Metoprolol succinate 100 mg daily. 15. Zestril. 16. Imdur. 17. Atorvastatin. REVIEW OF SYSTEMS: Positive for palpitations, heart racing, and fatigue. Otherwise, 12-point review of systems is currently unremarkable. FAMILY HISTORY: Positive for cancer and some type of cardiac disorder. Does not remember any history of sudden cardiac . Had a son with congenital heart disorder and at the age of 28. SOCIAL HISTORY: Denies alcohol, tobacco, or illicit drug use. Lives alone. She is retired. OBJECTIVE: VITAL SIGNS: 5 feet 2 inches and 170 pounds. Pulse 120, temperature 97.6, respirations 18, oxygen 97% on nasal cannula 2 L, and blood pressure 155/68. GENERAL: The patient is alert and oriented. Speech is clear. Affect is appropriate. She is resting comfortably in bed at the time the exam. HEENT: She is normocephalic and atraumatic. sclerae anicteric. EOMs are intact. Oral mucosa is moist and pink with adequate dentition. NECK: Supple without jugular venous distention. There is no lymphadenopathy. Her trachea is midline. HEART: Her heart rate is rapid. PMI nondisplaced. LUNGS: Clear to auscultation bilaterally. There is a midsternal scar noted from her prior bypass. ABDOMEN: Obese, soft, and nontender without palpable masses. EXTREMITIES: Warm and dry to touch. Well perfused without clubbing, cyanosis, or edema. NEUROLOGIC: Grossly intact and nonfocal. Gait was not assessed. LABORATORY DATA: Hematology was unremarkable. Chemistry on 07/17, potassium 3.2 and creatinine 0.75. BNP is 686. AST 56, ALT 68, alkaline phosphatase 184, and magnesium 1.7. Blood glucoses have been elevated, but addressed with insulin. TSH 1.7. Telemetry and EKGs, initially she came in sinus rhythm, but went into typical atrial flutter with RVR. Echocardiogram 12/30/2017; LVEF 60% to 65%, 1/3 diastolic dysfunction, and left atrium 3.3 cm. Left heart catheterization 04/11/2015, showed a distal RCA 50% to 70% stenosis. LAD 100% occlusion. MOON to the LAD patent. Diffuse disease to the mid distal LAD approximately 60%. Diffuse circumflex disease. Small caliber vessels. IMPRESSION: 1. Typical atrial flutter with rapid ventricular response difficult rate control despite maximum support on diltiazem drip with additional IV Lopressor doses and symptomatic. 2. Concern for cholecystitis, ruled out with HIDA scan with resolved symptoms per General Surgery. 3. Indeterminate troponin elevation, not felt to be concerning for ischemic coronary artery disease per Cardiology. 4. Preserved LVEF. 5. History of metastatic breast cancer. 6. History of prior bypass grafting. PLAN AND RECOMMENDATIONS: I had a long discussion with Ms. Plummer about her recently discovered arrhythmia. I discussed possible treatment options of rate control, CONSTANCE-guided cardioversion, antiarrhythmic therapy, versus ablation. At this point, she has maxed out on support from her diltiazem drip and has also required boluses of IV Lopressor as well. My recommendation would be for EP study with ablation given the high rate of success with this procedure. She does appear that she has typical atrial flutter and no left atrial circuits have been suggested so far based on her telemetry tracings. Certainly with her history of bypass, she is at higher risk for left atrial arrhythmias as well. If she remains in atrial flutter, she will require a CONSTANCE prior to the ablation to rule out intracardiac thrombus. Otherwise, if she spontaneously converts to sinus rhythm, no CONSTANCE will be required. The patient voices understanding. She wishes to proceed with the ablation at the earliest convenience. We will keep her n.p.o. after midnight and plan for potential ablation procedure tomorrow. At this point, she is on Lovenox for anticoagulation. We will hold this on the day of the procedure. Thank you for allowing me to participate in the care of this patient. Job ID: [id number]
[2020-07-18 12:47] LABS: Anion Gap 17 mmol/L (10-20); BUN (Urea Nitrogen) 11 mg/dL (9.8-20.1); Calc. Creatinine Clearance 75 mL/min (70-130); Calcium 8.4 mg/dL (7.8-10.44); Carbon Dioxide 25 mmol/L (23-31); Chloride 101 mmol/L (98-107); Estimated GFR-MDRD 87; Glucose 304 mg/dL (83-110); Sodium 139 mmol/L (136-145)
--- NOTE | 2020-07-18 13:05 | PRG ---
DATE OF SERVICE: 07/18/2020 SUBJECTIVE: Ms. Plummer is feeling pretty well today. She has a bit of mild postprandial right upper quadrant pain, but much improved from admission. No nausea or vomiting or other complaints for me. OBJECTIVE: VITAL SIGNS: Temperature 97.7, pulse 78, blood pressure 126/64, 96% oxygen saturation on 2 L by nasal cannula. GENERAL: No acute distress, lying in bed comfortably. HEART: Irregular rhythm. LUNGS: Clear to auscultation bilaterally. ABDOMEN: Bowel sounds present. Soft. Mild tenderness to palpation in the upper abdomen, but no guarding or rebound tenderness. EXTREMITIES: No peripheral edema. LABORATORY STUDIES: Glucose 254. No other new labs from today. Looking back over trend of labs earlier this admission, LFTs all continuing to decline. Yesterday, alkaline phosphatase 184, AST 56, ALT 68, total bilirubin down to 1.2. ASSESSMENT AND PLAN: 1. Right upper quadrant pain, much improved. 2. Possible acalculous cholecystitis. 3. Biliary sludge. Agree with prior evaluation by Dr. Gan and Dr. Araya. The patient has had essentially normalization of LFTs and improvement of symptoms just with antibiotic therapy. She may have had acalculous cholecystitis. She has not felt to need surgical intervention at this time, particularly given all her comorbidities. She is tolerating her diet. No further studies planned recommendations from a GI perspective at this time. GI will sign off. Please call back anytime with questions or concerns. Job ID: [id number]
--- NOTE | 2020-07-18 18:31 | PDOC.HOSPP ---
- Subjective Encounter Date: 07/18/20 Encounter Time: 09:00 Subjective: F/u: afib THe patient converted to sinus rhythm at 8:40 this morning. She was on diltiazem drip at 15. She denied palpitations or shortness of breath. She was kept NPO For possible ablation, but was unable to be done today She denies abdominal pain, nausea or vomiting - Objective Vital Signs & Weight: Vital Signs (12 hours) Temp Pulse Resp BP Pulse Ox 07/18/20 15:37 98.3 F 70 18 109/52 L 96 07/18/20 11:44 97.7 F 78 18 126/64 96 07/18/20 08:37 116 H 07/18/20 08:00 97.6 F 77 18 155/68 H 97 Weight Admit Weight 172 lb 8 oz Weight 169 lb 12.8 oz I&O: 07/17/20 07/18/20 07/19/20 06:59 06:59 06:59 Intake Total 1110 2240 1170 Output Total 700 4600 Balance 410 -2360 1170 Result Diagrams: 07/17/20 08:34 07/18/20 12:25 Additional Labs: Accuchecks 07/18/20 07/18/20 07/18/20 17:43 10:11 05:52 POC Glucose 258 H 254 H 289 H 07/17/20 23:56 POC Glucose 292 H Hospitalist ROS - Review of Systems Constitutional: denies: fever, chills - Medication Medications: Active Medications Generic Name Dose Route Start Last Admin Trade Name Freq PRN Reason Stop Dose Admin Acetaminophen 650 mg 07/14/20 00:29 07/15/20 05:00 Acetaminophen 325 Mg Tab PO 650 mg Q4H PRN Administration Headache/Fever/Mild Pain (1-3) Atorvastatin Calcium 40 mg 07/15/20 21:00 07/17/20 20:10 Atorvastatin Calcium 40 Mg Tab PO 40 mg HS YANET Administration Brimonidine Tartrate 1 drop 07/14/20 21:00 07/18/20 08:34 Brimonidine Tartrate 0.2% Ophth Soln 5 Ml Bottle L EYE 1 drop BID YANET Administration Calcium Carbonate 600 mg 07/15/20 09:00 07/18/20 08:35 Calcium Carbonate 600 Mg Tab PO 600 mg DAILY YANET Administration Enoxaparin Sodium 60 mg 07/15/20 21:00 07/18/20 08:35 Enoxaparin Sodium 60 Mg/0.6 Ml Syringe SC 60 mg 0900,2100 YANET Administration Exemestane 25 mg 07/15/20 09:00 07/18/20 08:35 Exemestane 25 Mg Tab PO 25 mg DAILY YANET Administration Furosemide 40 mg 07/16/20 06:00 07/18/20 04:53 Furosemide 20 Mg Tab PO 40 mg 0600 YANET Administration Gabapentin 100 mg 07/14/20 21:00 07/18/20 15:26 Gabapentin 100 Mg Cap PO 100 mg TID YANET Administration Guaifenesin 600 mg 07/15/20 21:50 07/17/20 20:11 Guaifenesin Er 600 Mg Tab PO 600 mg Q12H PRN Administration Cough Piperacillin Sod/Tazobactam 100 mls @ 200 mls/hr 07/14/20 04:00 07/18/20 15:27 Sod 3.375 gm/ Sodium Chloride IVPB 100 mls 0400,1000,1600,2200 YANET Administration Diltiazem HCl 125 mg/ 125 mls @ 10 mls/hr 07/18/20 12:30 07/18/20 15:27 Miscellaneous Medication 1 IVPB 125 mls each/ Sodium Chloride INF YANET Administration Protocol Insulin Human Lispro 0 units 07/14/20 00:38 07/18/20 17:45 Humalog 300 Units/3 Ml Vial SC 6 unit .MODERATE SLIDING SC PRN Administration Moderate Correctional Scale Isosorbide Mononitrate 15 mg 07/14/20 09:00 07/18/20 08:37 Isosorbide Mononitrate Er 30 Mg Tab PO 15 mg DAILY YANET Administration Lisinopril 5 mg 07/15/20 09:00 07/18/20 08:37 Lisinopril 5 Mg Tab PO 5 mg DAILY YANET Administration Magnesium Oxide 500 mg 07/15/20 09:00 07/18/20 08:35 Magnesium Oxide 250 Mg Tab PO 500 mg DAILY YANET Administration Metoprolol Succinate 100 mg 07/14/20 09:00 07/18/20 08:35 Metoprolol Succinate Xl 25 Mg Tab PO 100 mg DAILY YANET Administration Metoprolol Tartrate 5 mg 07/17/20 16:05 07/18/20 06:17 Metoprolol Tartrate 5 Mg/5 Ml Vial IVP 5 mg Q6H PRN Administration HR sustaining >130 Morphine Sulfate 2 mg 07/14/20 00:35 07/16/20 19:48 Morphine 2 Mg/Ml Vial SLOW IVP 2 mg Q4H PRN Administration Pain (Everolimus [ 7.5 mg 07/17/20 09:00 07/18/20 08:33 Everolimus] 7.5 Mg PO 7.5 mg Tablet) DAILY YANET Administration Ondansetron HCl 4 mg 07/14/20 00:29 07/14/20 20:21 Ondansetron Odt 4 Mg Tab PO 4 mg Q6H PRN Administration Nausea/Vomiting Ondansetron HCl 4 mg 07/14/20 00:29 07/14/20 14:54 Ondansetron Pf 4 Mg/2 Ml Vial IVP 4 mg Q6H PRN Administration Nausea/Vomiting Pantoprazole Sodium 40 mg 07/14/20 09:00 07/18/20 08:34 Pantoprazole 40 Mg Vial IVP 40 mg DAILY YANET Administration Potassium Chloride 10 meq 07/17/20 08:00 07/18/20 08:35 Potassium Chloride 10 Meq Tab PO 10 meq QAM-WM YANET Administration Pyridoxine HCl 100 mg 07/15/20 09:00 07/18/20 08:36 Pyridoxine 50 Mg (B6) Tab PO 100 mg DAILY YANET Administration Sodium Chloride 10 ml 07/14/20 00:29 07/17/20 08:47 Flush - Normal Saline 10 Ml Syringe IVF 10 ml PRN PRN Administration Saline Flush - Exam General Appearance: NAD, awake alert Eye: PERRL, anicteric sclera ENT: normocephalic atraumatic, no oropharyngeal lesions Neck: no JVD Heart: RRR, no murmur, no gallops, no rubs Respiratory: CTAB, no wheezes, no rales, no ronchi Gastrointestinal: soft, non-tender, non-distended, normal bowel sounds Extremities: no cyanosis, no clubbing, no edema Skin: normal turgor, no lesions, no rashes Hosp A/P - Plan Chest Xray 07/17: left pleural and parenchymal opacity similar in appearance . Small left pleural effusion, basilar atelectasis HIDA scan: normal MRI of abdomen: gallbladder distension may reflect acalculous cholecystitis. 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 Stable peritoneal carcinomatosis This is a 75 year old female who presented ot the hospital with nausea, vomiting. She had transaminitis, and concern for cholecystitis on ultrasound. She has been placed on IV antibiotics with improvement. Hospital course has been complicated by atrial fibrillation Atrial fibrillation and atrial flutter - she has converted to sinus rhythm. She is being weaned off the drip. She was loaded with digoxin yesterday -EP was consulted and the patient will be n.p.o. for possible ablation tomorrow - replace potassium to keep > 4, Mg > 2 Abdominal pain - possibly from peritoneal carcinomatosis vs gallbladder distension - MRI of abdomen showed acalculous cholecystitis. HIDA scan negative. It was also negative in April - surgery consulted, conservative management for now. Continue IV zosyn until tomorrow then discontinue. Repeat abd US showed sludge. She is tolerating diet. GI has signed off Multiple myeloma stage IV - continue home medicine. Last CT scan of abdomen showed stable disease - follows with Dr. Lambert as an outpatient Transaminitis - improving, will repeat LFts tomorrow. Abd US 07/17 showed sludge, no signs of cholecystitis Dispo: NPO for possible ablation tomorrow
[2020-07-18 19:16] LABS: ALT (SGPT) 53 U/L (8-55); AST (SGOT) 59 U/L (5-34); Albumin 3.1 g/dL (3.4-4.8); Alkaline Phosphatase 148 U/L (40-110); Anion Gap 15 mmol/L (10-20); BUN (Urea Nitrogen) 14 mg/dL (9.8-20.1); Bilirubin, Total 0.9 mg/dL (0.2-1.2); Calc. Creatinine Clearance 70 mL/min (70-130); Calcium 8.3 mg/dL (7.8-10.44); Carbon Dioxide 28 mmol/L (23-31); Chloride 100 mmol/L (98-107); Estimated GFR-MDRD 81; Globulin 3.6 g/dL (2.4-3.5); Glucose 262 mg/dL (83-110); Magnesium 1.7 mg/dL (1.6-2.6); Potassium 4.1 mmol/L (3.5-5.1); Protein, Total 6.7 g/dL (6.0-8.3); Sodium 139 mmol/L (136-145)
[2020-07-18] MEDS: Atorvastatin Calcium 40 MG TAB PO SCH (22:25)
[2020-07-19] MEDS: Morphine 2 MG/ML VIAL SLOW IVP PRN (00:58)
[2020-07-19] MEDS: Diltiazem HCl 125 MG, Admixture Fee 1 EACH in Sodium Chloride 0.9% 100 ML IVPB SCH (05:17)
[2020-07-19] MEDS ORDERED: Piperacillin/Tazobactam 3.375 GM in Sodium Chloride 0.9% 100 ML IVPB SCH ×2 (06:00→07:00)
[2020-07-19] MEDS: Furosemide 20 MG TAB PO SCH ×2 (06:28→07:32)
[2020-07-19] MEDS: HumaLOG 300 UNITS/3 ML VIAL SC PRN ×2 (06:28→12:05)
[2020-07-19] MEDS ORDERED: Heparin 10,000 UNITS/ 10 ML VIAL ONE (06:49)
[2020-07-19] MEDS ORDERED: Fentanyl 100 MCG/2 ML VIAL ONE (06:53)
[2020-07-19] MEDS ORDERED: Tetracaine HCl 0.5% Ophth Soln 2 ML Bottle ONE (07:00)
[2020-07-19] MEDS ORDERED: Propofol 1,000 MG/100 ML VIAL IV ONE (07:00)
--- NOTE | 2020-07-19 07:18 | EKG ---
Test Reason : STAT Blood Pressure : / mmHG Vent. Rate : 099 BPM Atrial Rate : 099 BPM P-R Int : 142 ms QRS Dur : 084 ms QT Int : 384 ms P-R-T Axes : 050 015 015 degrees QTc Int : 492 ms Sinus rhythm with occasional Premature ventricular complexes Nonspecific T wave abnormality Abnormal ECG No previous ECGs available Confirmed by MORIS SOUTH MD ([id number]) on 07/19/2020 7:17:33 AM Referred By: MEEK CORNEJO Confirmed By:MORIS SOUTH MD
[2020-07-19] MEDS: Enoxaparin Sodium 60 MG/0.6 ML SYRINGE SC SCH (07:44)
[2020-07-19 07:52] LABS: #Eosinphils 0.1 thou/uL (0.0-0.7); #Lymphocytes 1.2 thou/uL (1.20-3.40); #Monocytes 0.8 thou/uL (0.11-0.59); #Neutrophils 4.1 thou/uL (1.40-6.50); %Basophils 0.2 % (0.0-1.0); %Monocytes 12.3 % (0.0-10.0); %Neutrophils 66.5 % (42.0-75.0); Hemoglobin 11.2 g/dL (12.0-16.0); Mean Corpuscular HGB CONC 31.5 g/dL (32.0-36.0); Mean Corpuscular Hemoglobin 28.5 pg (27.0-31.0); Mean Corpuscular Volume 90.2 fL (78.0-98.0); Mean Platelet Volume 7.2 fL (7.4-10.4); Platelet Count 234 thou/uL (130-400); RBC Distribution Width 14.7 % (11.5-14.5); Red Blood Cell (RBC) Count 3.92 mill/uL (4.20-5.40); White Blood Cell (WBC) Count 6.2 thou/uL (4.8-10.8)
[2020-07-19 08:17] LABS: Anion Gap 17 mmol/L (10-20); BUN (Urea Nitrogen) 13 mg/dL (9.8-20.1); Calc. Creatinine Clearance 73 mL/min (70-130); Calcium 8.2 mg/dL (7.8-10.44); Carbon Dioxide 24 mmol/L (23-31); Chloride 102 mmol/L (98-107); Estimated GFR-MDRD 84; Glucose 259 mg/dL (83-110); Magnesium 1.7 mg/dL (1.6-2.6); Potassium 3.8 mmol/L (3.5-5.1); Sodium 139 mmol/L (136-145)
[2020-07-19 08:22] LABS: ALT (SGPT) 52 U/L (8-55); AST (SGOT) 57 U/L (5-34); Albumin 3.1 g/dL (3.4-4.8); Alkaline Phosphatase 141 U/L (40-110); Bilirubin, Direct 0.4 mg/dL (0.1-0.3); Protein, Total 6.6 g/dL (6.0-8.3)
[2020-07-19] MEDS ORDERED: Lidocaine 1% PF 5 ML VIAL ONE (08:52)
[2020-07-19] MEDS ORDERED: PROPOFOL 200 MG/20 ML VIAL ONE (08:52)
[2020-07-19] MEDS ORDERED: DOPamine 400 MG/D5W 250 ML 250 ML ONE (09:27)
[2020-07-19 11:37] LABS: SARS-CoV-2 MS2 Positive; SARS-CoV-2 N Gene Negative; SARS-CoV-2 S Gene Negative; SARS-CoV-2 by NAA Not Detected (NotDetected); SARS-CoV-2 orf1ab Negative
[2020-07-19] MEDS: Potassium Chloride 10 MEQ TAB PO SCH (11:44)
[2020-07-19] MEDS: Lisinopril 5 MG TAB PO SCH (11:45)
[2020-07-19] MEDS: Brimonidine Tartrate 0.2% Ophth Soln 5 ml Bottle L EYE SCH (11:45)
[2020-07-19] MEDS: Gabapentin 100 MG CAP PO SCH ×2 (11:46→15:42)
[2020-07-19] MEDS: Pantoprazole 40 MG VIAL IVP SCH (11:46)
[2020-07-19] MEDS: EVEROLIMUS 7.5 MG PO SCH (11:46)
[2020-07-19] MEDS: Exemestane 25 MG TAB PO SCH (11:46)
[2020-07-19] MEDS: Calcium Carbonate 600 MG TAB PO SCH (11:46)
[2020-07-19] MEDS: Magnesium Oxide 250 MG TAB PO SCH (11:47)
[2020-07-19] MEDS: pyridOXINE 50 MG (B6) TAB PO SCH (11:48)
--- NOTE | 2020-07-19 12:29 | OP ---
DATE OF PROCEDURE: 07/19/2020 PROCEDURE PERFORMED: Electrophysiology study and radiofrequency ablation. REASON FOR PROCEDURE: Ms. Plummer is a 75-year-old woman with prior history of preserved LVEF, metastatic breast cancer, cholecystitis, diastolic heart failure. She presented with frequent palpitations, requiring IV diltiazem, digoxin for rate control with telemetry documentation of typically-appearing atrial flutter. She is here for cavotricuspid isthmus ablation. DESCRIPTION OF PROCEDURE: The patient received propofol and deep sedation by Anesthesia specialist. After adequate level of sedation achieved, the right femoral venous area was prepped, draped, and anesthetized using subcutaneous lidocaine, and under ultrasound guidance, the right femoral vein was cannulated x2. Two 8- [place] short sheath was introduced through which a ThermoCool SFST catheter as well as a decapolar catheter advanced to the right atrium, right ventricle, His bundle, and CS positions. Pacing, mapping, and recording were performed at each location.3D mapping of the the right atrium clearly delineated the isthmus, His bundle, and CS os. Basic EP study was performed with the following finding: The baseline rhythm was sinus rhythm with cycle length 939 milliseconds, CA 149 milliseconds, QRS is 54 milliseconds, QT 431 milliseconds, AH 116 milliseconds, HV 35 milliseconds. Sinus node recovery time was 336 milliseconds. The Wenckebach cycle length was 420 milliseconds. No VA conduction was noted. AV darryl ERP was 600/240 milliseconds without evidence of dual AV darryl pathway. Burst atrial pacing initially did not induce atrial flutter or other arrhythmias. Due to the typical-appearing isthmus-dependent atrial flutter on telemetry, we proceeded with the cavotricuspid isthmus ablation. We were able to achieve prolongation of transisthmus time up to 130 milliseconds in the anterior portion only about 100 milliseconds in the posterior portion rapid posterior conduction through the isthmus was seen. Dopamine was administered. Additional burst atrial pacing maneuvers did induce short sustained atypical flutter, which was though eventually pace terminated on pacing maneuvers. No reconnection on the transisthmus line was seen. At the end of the case, the cardiac silhouette did not change. Catheter was removed from the body and the groin sites were closed with basket closure. CONCLUSION: 1. Successful cavotricuspid isthmus ablation. 2. Additional left atrial arrhythmia circuits also seen. PLAN: Continue monitoring for recurrent arrhythmias. Consider short course anticoagulation. Consider antiarrhythmic agents if frequent recurrence of atrial arrhythmias noted in the future. Job ID: [id number] KALEIDA HEALTHEvin
[2020-07-19 15:44] VITALS: TEMP 98.4
[2020-07-19] MEDS ORDERED: Lisinopril 5 MG TAB PO SCH (16:15)
[2020-07-19 17:39] VITALS: BP 136/78
--- NOTE | 2020-07-19 19:34 | PDOC.DS.DS ---
Provider - Provider Date of Admission: 07/13/20 21:40 Date of Discharge: 07/19/20 Admitting Provider: Jaswinder Hoyos MD Consultations: Cardiology (Dr. London Redd), Other (EP with Dr. Tom Moraes) Primary Care Physician: Unknown Course - Hospital Course Hospital Course: Discharge Diagnoses: 1. Abdominal pain likely secondary to peritoneal carcinomatosis versus gallbladder sludge 2. History of breast cancer stage IV 3. Transaminitis 4. Atrial fibrillation and atrial flutter status post cardioversion 5. Hypertension Brief HPI: This is 75-year-old female past medical history of malignant breast cancer with osseous metastasis who presents to the emergency room with abdominal pain,, diarrhea and vomiting. She denied any other symptoms. When she presented to the emergency room she had an alk phos of 236, T bili of 3.0. MRI of her abdomen showed calculus cholecystitis. She has been to the hospital for further work-up HOSPITAL COURSE: Abdominal pain - possibly from peritoneal carcinomatosis vs gallbladder distension - MRI of abdomen showed acalculous cholecystitis. Surgery was consulted and GI as well. HIDA scan was negative. It was also negative in April. Given her history of stage IV breast cancer conservative management was recommended. The patient received IV Zosyn for 5 days. Her abdominal pain resolved. She was jeni erating a regular diet at the time of discharge. Repeat abdominal ultrasound showed gallbladder sludge with no gallstones. He had a recent CT scan with her oncologist which showed stable metastases. : She is advised to follow-up with her oncologist as an outpatient. Atrial fibrillation and atrial flutter: Patient had gone into atrial flutter and atrial fibrillation with her heart rate going up to the 140s. She required a Cardizem drip while in the hospital. EP was consulted and the patient underwent cardioversion on 07/19. She converted to sinus rhythm on the day of discharge. She will be discharged on diltiazem 120 mg p.o. daily. She was discharged on Eliquis 5 mg twice daily which she can start tomorrow. She should follow-up w bryson Redd in a week. Breast cancer stage IV: She will continue her outpatient exemestane. She follows up with Dr. Lambert as an outpatient - continue home medicine. Last CT scan of abdomen showed stable disease - follows with Dr. Lambert as an outpatient Transaminitis: Patient's alk phos is originally 258. This was monitored serially and improved to 141. She denied any abdominal pain. Her AST improved to 51. Repeat LFTS as an outpatient Type II Diabetes: Patient's blood sugars in the hospital were 217 to 296. Patient was on a large amount of Lantus at home. She only required 10 units of sliding scale a day,, therefore her Lantus was reduced to 10 units nightly. Pertinent Studies: Chest Xray 07/17: left pleural and parenchymal opacity similar in appearance . Small left pleural effusion, basilar atelectasis HIDA scan: normal MRI of abdomen: gallbladder distension may reflect acalculous cholecystitis. 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 Stable peritoneal carcinomatosis Abdominal ultrasound: Fairly large oblong nonmobile opacity in the dependent portion of the gallbladder possibly large sludge ball. Procedures: Cardioversion 07/18 Resuscitation Status: 07/14/20 00:16 Resuscitation Status Routine Co-Sign Provider: Resuscitation Status: FULL: Full Resuscitation Discussed with: patient - Labs Lab Results: 07/19/20 07:46 07/19/20 07:46 Abnormal Lab Results - Last 48 hrs 07/18/20 18:53: AST 59 H, Alkaline Phosphatase 148 H, Albumin 3.1 L, Globulin 3.6 H, Albumin/Globulin Ratio 0.9 L 07/19/20 07:46: RBC 3.92 L, Hgb 11.2 L, Hct 35.4 L, MCHC 31.5 L, RDW 14.7 H, MPV 7.2 L, Lymphocytes % 20.0 L, Monocytes % 12.3 H, Monocytes # 0.8 H 07/19/20 07:46: Direct Bilirubin 0.4 H, AST 57 H, Alkaline Phosphatase 141 H, Albumin 3.1 L - Physical Exam Vitals: Vital Signs (12 hours) Temp Pulse Resp BP BP BP BP 07/19/20 17:39 89 136/78 07/19/20 15:40 98.4 F 84 16 160/69 H 07/19/20 11:45 84 180/76 H 07/19/20 11:30 97.7 F 82 18 180/76 H 07/19/20 07:45 98.7 F 73 18 137/61 11/24/20 07:42 Pulse Ox 07/19/20 17:39 07/19/20 15:40 98 07/19/20 11:45 07/19/20 11:30 98 07/19/20 07:45 96 07/19/20 07:42 96 Weight Admit Weight 172 lb 8 oz Weight 169 lb 12.8 oz Physical Exam: The patient was seen and examined on the day of discharge. General Appearance: NAD, awake alert Eye: PERRL, anicteric sclera ENT: normocephalic atraumatic, no oropharyngeal lesions Neck: no JVD Heart: RRR, no murmur, no gallops, no rubs Respiratory: CTAB, no wheezes, no rales, no ronchi Gastrointestinal: soft, non-tender, non-distended, normal bowel sounds Extremities: no cyanosis, no clubbing, no edema Skin: normal turgor, no lesions, no rashes Problem - Discharge Plan Plan of Treatment: With Dr. Redd in a week and Dr. Moraes in a few weeks. Follow-up with your primary care doctor in a week. Repeat LFTs in a week - Time spent with Patient (mins): 40 Plan - Discharge Medications Prescriptions: Diltiazem CD [Cardizem CD] 120 mg PO DAILY #30 cap Apixaban [Eliquis] 5 mg PO BID #60 tablet Insulin Glargine [Lantus] 10 units SC HS #30 vial Home Medications: Medication Instructions Recorded Confirmed Type Aspirin Chewable [Aspirin Chewable 81 mg PO DAILY 04/08/15 07/14/20 History Tablet] Atorvastatin Calcium 40 mg PO HS 04/08/15 07/14/20 History Brimonidine Tartrate [Brimonidine 1 drop L EYE BID 04/08/15 07/14/20 History Tartrate 0.15% Ophth Soln] Calcium Carbonate [Calcium] 600 mg PO DAILY 04/08/15 07/14/20 History Clopidogrel Bisulfate [Plavix] 75 mg PO DAILY 04/08/15 07/14/20 History Isosorbide Mononitrate [Imdur ER] 30 mg PO DAILY 04/08/15 07/14/20 History Lisinopril [Zestril] 5 mg PO DAILY 04/08/15 07/14/20 History Metoprolol Succinate [Toprol XL] 100 mg PO DAILY 04/08/15 07/14/20 History pyridOXINE [Vitamin B 6] 100 mg PO DAILY 04/08/15 07/14/20 History Magnesium Oxide [Magnesium] 500 mg PO DAILY 04/13/19 07/14/20 History Potassium 1 tablet PO DAILY 04/13/19 07/14/20 History Everolimus 7.5 mg PO DAILY 07/14/20 07/14/20 History Exemestane 25 mg PO DAILY 07/14/20 07/14/20 History Gabapentin 100 mg PO TID 07/14/20 07/14/20 History Omeprazole 40 mg PO DAILY 07/14/20 07/14/20 History Promethazine [Phenergan] 12.5 mg PO Q6HR PRN 07/14/20 07/14/20 History pyridOXINE [Vitamin B 6] 100 mg PO DAILY 07/14/20 07/14/20 History HumaLOG [HumaLOG Vial] 0 unit SC TID-WM PRN 07/17/20 07/17/20 History Apixaban [Eliquis] 5 mg PO BID #60 tablet 07/19/20 Rx Diltiazem CD [Cardizem CD] 120 mg PO DAILY #30 cap 07/19/20 Rx Insulin Glargine [Lantus] 10 units SC HS #30 vial 07/19/20 Rx Allergies: Sulfa (Sulfonamide Antibiotics) Allergy (Verified 07/14/20 00:32) - Discharge Instructions Discharge Instructions:: Post ablation instructions: Contact [facility] ( Dr Moraes Office) with post ablation concerns. [phone] No lifting over 10lb x1 week or until leg site is healed without discomfort. Activity:: Activity as Tolerated Nourishment:: Heart Healthy Diet - Follow up Plan Referrals: Sang Garcia MD [Active] - (Call with any GI questions) London Redd MD [Active] - 14 Days (follow up with cardiology in 1-2 weeks. Call the office to schedule an appointment.) Parminder Cannon MD [Active] - 7 Days (Please call office to schedule an appointment.) Tom Moraes MD [[employer]] - (6 weeks. [phone]) Disposition: HOME Quality - Care Measures CORE MEASURES:: N/A - Stroke/TIA Did you prescribe antithrombotic therapy?: Yes Did you prescribe anticoagulant for A Fib/Flutter?: Yes Did you prescribe a statin medication?: Yes
== END 2020-07-19 18:47 | disposition home or self-care (01) | DRG 981 ==
LOC: ONC 21:40 → 2NO 07-15 12:39
PROVIDERS: ADMIT Internal Medicine; ATTEND Emergency Medicine
PROC: 02583ZZ Destruction of Conduction Mechanism, Percutaneous Approach (ICD-10-PCS; principal; 2020-07-19)
PROC: 4A023FZ Measurement of Cardiac Rhythm, Percutaneous Approach (ICD-10-PCS; 2020-07-19)
PROC: 4A0234Z Measurement of Cardiac Electrical Activity, Percutaneous Approach (ICD-10-PCS; 2020-07-19)
PROC: 02K83ZZ Map Conduction Mechanism, Percutaneous Approach (ICD-10-PCS; 2020-07-19)
DX: C78.6 Secondary malignant neoplasm of retroperitoneum and peritoneum (principal); I21.A1 Myocardial infarction type 2; C79.51 Secondary malignant neoplasm of bone; C90.00 Multiple myeloma not having achieved remission; I48.3 Typical atrial flutter; K81.0 Acute cholecystitis; I50.32 Chronic diastolic (congestive) heart failure; K82.8 Other specified diseases of gallbladder; C50.919 Malignant neoplasm of unspecified site of unspecified female breast; E11.65 Type 2 diabetes mellitus with hyperglycemia; R74.01 Elevation of levels of liver transaminase levels; Z20.828 Contact with and (suspected) exposure to other viral communicable diseases; E11.40 Type 2 diabetes mellitus with diabetic neuropathy, unspecified; H40.9 Unspecified glaucoma; E78.00 Pure hypercholesterolemia, unspecified; K21.9 Gastro-esophageal reflux disease without esophagitis; I11.0 Hypertensive heart disease with heart failure; I25.10 Atherosclerotic heart disease of native coronary artery without angina pectoris; E87.6 Hypokalemia; I48.91 Unspecified atrial fibrillation; Z95.1 Presence of aortocoronary bypass graft; Z88.2 Allergy status to sulfonamides; Z90.710 Acquired absence of both cervix and uterus; Z79.899 Other long term (current) drug therapy; Z79.82 Long term (current) use of aspirin; Z79.4 Long term (current) use of insulin; Z79.02 Long term (current) use of antithrombotics/antiplatelets; Z92.3 Personal history of irradiation
CPT/HCPCS: 36415; 36416; 71045; 74181; 76705; 76942; 78226; 80048; 80053; 80076; 82553; 83735; 83880; 84443; 84484; 85025; 85027; 85610; 85730; 87635; 93005; 93010; 93613; 93623; 93653; A9537; C1730; C1732; C9113; J1160; J1265; J1644; J1650; J2270; J2405; J2543; J2704; J3010; J3475; J3480; J3490; J7050; Q0162; U0003

== ENCOUNTER 2020-12-09 08:30 | Outpatient (CLI) | payer MEDICARE, OTHER ==
[2020-12-09] MEDS ORDERED: Iopamidol 370 76% 100 ML VIAL ONE (09:33)
== END 2020-12-09 08:31 | disposition home or self-care (01) ==
LOC: CT 08:30
PROVIDERS: ATTEND Internal Medicine Hematology & Oncology
DX: C79.51 Secondary malignant neoplasm of bone (principal); C50.912 Malignant neoplasm of unspecified site of left female breast; J90 Pleural effusion, not elsewhere classified; C79.72 Secondary malignant neoplasm of left adrenal gland; Z98.890 Other specified postprocedural states; C78.6 Secondary malignant neoplasm of retroperitoneum and peritoneum
CPT/HCPCS: 71260; 74177; 78306; 82565; A9503; 36415; 80053; 82248; 83615; 84100; 84550; 86300; Q9967

== ENCOUNTER 2021-03-15 09:08 | Outpatient (CLI) | payer MEDICARE, OTHER | END 2021-03-15 09:09 | disposition home or self-care (01) | LOC: CT 09:08 | PROVIDERS: ATTEND Internal Medicine Hematology & Oncology | DX: C50.919 Malignant neoplasm of unspecified site of unspecified female breast (principal); C79.51 Secondary malignant neoplasm of bone; C78.6 Secondary malignant neoplasm of retroperitoneum and peritoneum; C79.72 Secondary malignant neoplasm of left adrenal gland; C79.89 Secondary malignant neoplasm of other specified sites; J90 Pleural effusion, not elsewhere classified; R18.8 Other ascites | CPT/HCPCS: 71260; 74177; 78306; A9503; Q9967 ==

== ENCOUNTER 2021-06-08 09:11 | Outpatient (CLI) | payer MEDICARE | END 2021-06-08 09:12 | disposition home or self-care (01) | LOC: CT 09:11 | PROVIDERS: ATTEND Internal Medicine Hematology & Oncology | DX: C50.919 Malignant neoplasm of unspecified site of unspecified female breast (principal); C79.51 Secondary malignant neoplasm of bone; C78.7 Secondary malignant neoplasm of liver and intrahepatic bile duct; J90 Pleural effusion, not elsewhere classified; R18.8 Other ascites | CPT/HCPCS: 71260; 74177 ==

== ENCOUNTER 2021-07-07 08:54 | Day surgery (SDC) | payer MEDICARE, OTHER ==
[2021-07-07] MEDS ORDERED: Acetaminophen 500 MG TAB PO SCH (09:15)
[2021-07-07] MEDS ORDERED: diphenhydrAMINE 25 MG CAP PO SCH (09:15)
[2021-07-07 11:36] VITALS: TEMP 98.5
[2021-07-07 13:54] VITALS: BP 124/58
== END 2021-07-07 13:55 | disposition home or self-care (01) ==
LOC: ONC/OP 08:54
PROVIDERS: ATTEND Internal Medicine Hematology & Oncology
PROC: 30233N1 Transfusion of Nonautologous Red Blood Cells into Peripheral Vein, Percutaneous Approach (ICD-10-PCS; principal; 2021-07-07)
DX: D64.9 Anemia, unspecified (principal); D69.6 Thrombocytopenia, unspecified; Z88.2 Allergy status to sulfonamides
CPT/HCPCS: 36430; 86850; 86900; 86901; P9016

== ENCOUNTER 2021-07-10 10:27 | Outpatient (CLI) | payer MEDICARE, OTHER | END 2021-07-10 10:28 | disposition home or self-care (01) | LOC: NM 10:27 | PROVIDERS: ATTEND Internal Medicine Hematology & Oncology | DX: C50.112 Malignant neoplasm of central portion of left female breast (principal); C79.51 Secondary malignant neoplasm of bone | CPT/HCPCS: 78306; A9503 ==

== ENCOUNTER → 2021-09-26 | Outpatient (CLI) | payer MEDICARE, OTHER | LOC: PET 11:45 | PROVIDERS: ATTEND Internal Medicine Hematology & Oncology | DX: C79.51 Secondary malignant neoplasm of bone (principal); C50.112 Malignant neoplasm of central portion of left female breast; C78.7 Secondary malignant neoplasm of liver and intrahepatic bile duct; J90 Pleural effusion, not elsewhere classified | CPT/HCPCS: 78815; A9552 ==

== ENCOUNTER 2021-10-14 14:27 | Emergency (ER) | payer OTHER ==
[2021-10-14 15:44] LABS: #Lymphocytes 0.8 thou/uL (1.20-3.40); #Monocytes 0.2 thou/uL (0.11-0.59); #Neutrophils 3.2 thou/uL (1.40-6.50); %Basophils 0.6 % (0.0-1.0); %Eosinophils 0.7 % (0.0-10.0); %Lymphocytes 17.9 % (21.0-51.0); %Neutrophils 76.8 % (42.0-75.0); Hemoglobin 9.7 g/dL (12.0-16.0); Mean Corpuscular HGB CONC 32.2 g/dL (32.0-36.0); Mean Corpuscular Hemoglobin 33.1 pg (27.0-31.0); Mean Platelet Volume 7.1 fL (7.4-10.4); Platelet Count 286 thou/uL (130-400); RBC Distribution Width 21.5 % (11.5-14.5); Red Blood Cell (RBC) Count 2.92 mill/uL (4.20-5.40); White Blood Cell (WBC) Count 4.2 thou/uL (4.8-10.8)
[2021-10-14 15:55] LABS: INR-International Normal Ratio 1.4
[2021-10-14 16:07] LABS: ALT (SGPT) 27 U/L (8-55); AST (SGOT) 44 U/L (5-34); Albumin 3.7 g/dL (3.4-4.8); Alkaline Phosphatase 82 U/L (40-110); Anion Gap 15 mmol/L (10-20); BUN (Urea Nitrogen) 21 mg/dL (9.8-20.1); Bilirubin, Total 1.7 mg/dL (0.2-1.2); Calc. Creatinine Clearance 0 mL/min (70-130); Calcium 9.3 mg/dL (7.8-10.44); Carbon Dioxide 29 mmol/L (23-31); Chloride 93 mmol/L (98-107); Globulin 3.3 g/dL (2.4-3.5); Glucose 100 mg/dL (83-110); Sodium 134 mmol/L (136-145)
[2021-10-14] MEDS ORDERED: Acetaminophen 325 MG TAB ONE (16:15)
== END 2021-10-14 17:08 | disposition home or self-care (01) ==
LOC: ERS 14:27
DX: S00.03XA Contusion of scalp, initial encounter (principal); E87.6 Hypokalemia; I10 Essential (primary) hypertension; E11.9 Type 2 diabetes mellitus without complications; E78.5 Hyperlipidemia, unspecified; E78.00 Pure hypercholesterolemia, unspecified; W01.198A Fall on same level from slipping, tripping and stumbling with subsequent striking against other object, initial encounter; Z85.3 Personal history of malignant neoplasm of breast; Z79.01 Long term (current) use of anticoagulants; Z79.4 Long term (current) use of insulin; Z79.899 Other long term (current) drug therapy
CPT/HCPCS: 36415; 70450; 72125; 80053; 85025; 85610; 85730; 94760

== ENCOUNTER 2021-10-16 22:28 | Inpatient (IN) | payer MEDICARE ==
[2021-10-16] MEDS ORDERED: hydrALAZINE 20 MG/ML VIAL SLOW IVP PRN (22:54)
[2021-10-16] MEDS ORDERED: Ondansetron ODT 4 MG TAB PO PRN (22:54)
[2021-10-16] MEDS ORDERED: Ondansetron PF 4 MG/2 ML Vial IVP PRN (22:54)
[2021-10-16] MEDS ORDERED: Acetaminophen 500 MG TAB PO PRN (23:07)
[2021-10-16] MEDS ORDERED: Polyethylene Glycol 3350 17 GM Packet PO PRN (23:15)
[2021-10-16] MEDS ORDERED: Acetaminophen 325 MG TAB PO PRN (23:15)
[2021-10-17 00:16] LABS: #Lymphocytes 0.8 thou/uL (1.20-3.40); #Monocytes 0.2 thou/uL (0.11-0.59); #Neutrophils 1.6 thou/uL (1.40-6.50); %Basophils 0.8 % (0.0-1.0); %Eosinophils 0.5 % (0.0-10.0); %Lymphocytes 29.7 % (21.0-51.0); %Monocytes 6.2 % (0.0-10.0); %Neutrophils 62.8 % (42.0-75.0); Hemoglobin 8.7 g/dL (12.0-16.0); Mean Corpuscular HGB CONC 31.8 g/dL (32.0-36.0); Mean Corpuscular Hemoglobin 33.6 pg (27.0-31.0); Mean Platelet Volume 6.9 fL (7.4-10.4); Platelet Count 274 thou/uL (130-400); RBC Distribution Width 21.1 % (11.5-14.5); Red Blood Cell (RBC) Count 2.59 mill/uL (4.20-5.40); White Blood Cell (WBC) Count 2.6 thou/uL (4.8-10.8)
[2021-10-17 00:23] LABS: INR-International Normal Ratio 1.3; Prothrombin Time 16.4 sec (12.0-14.7)
[2021-10-17 00:24] LABS: PTT 40.5 sec (22.9-36.1)
[2021-10-17 00:32] LABS: Anion Gap 13 mmol/L (10-20); BUN (Urea Nitrogen) 23 mg/dL (9.8-20.1); Calc. Creatinine Clearance 0 mL/min (70-130); Calcium 9.1 mg/dL (7.8-10.44); Carbon Dioxide 35 mmol/L (23-31); Chloride 90 mmol/L (98-107); Glucose 258 mg/dL (83-110); Magnesium 2.1 mg/dL (1.6-2.6); Phosphorus 4.2 mg/dL (2.3-4.7); Sodium 135 mmol/L (136-145)
[2021-10-17 00:45] LABS: Potassium 2.8 mmol/L (3.5-5.1)
[2021-10-17 01:58] VITALS: BMI 27.5
[2021-10-17 03:23] LABS: SARS-CoV-2 NAA Rapid Test Not Detected (NotDetected)
[2021-10-17 04:42] LABS: Bacteria/HPF 1+ HPF (None Seen); Bilirubin Negative (Negative); Blood, Urine Negative (Negative); Clarity Clear (Clear); Glucose, Urine (Dipstick) Normal (Negative); Ketone, Urine Negative (Negative); Leukocyte 75 Leu/uL (Negative); Nitrite Negative (Negative); Protein, Urine (Dipstick) Negative (Neg-Trace); Specific Gravity, Urine 1.014 (1.002-1.036); Squamous Epithelial 0-3 HPF (0-3); Urobilinogen Normal mg/dL (Less than 2)
[2021-10-17 04:43] LABS: Urine Culture Reflex Yes Yes
[2021-10-17] MEDS ORDERED: Insulin Regular 300 UNITS/3 ML VIAL SC PRN (07:34)
[2021-10-17] MEDS ORDERED: Dextrose 5% in Water 1,000 ML IV PRN (07:34)
[2021-10-17] MEDS ORDERED: Dextrose 50% Abboject 50 ML SYRINGE SLOW IVP PRN (07:34)
[2021-10-17] MEDS ORDERED: Potassium Chloride 40 MEQ in Premix Bag 1 BAG IVPB SCH (07:45)
[2021-10-17] MEDS ORDERED: Ciprofloxacin 500 MG TAB PO SCH (08:00)
[2021-10-17] MEDS ORDERED: Lantus 1000 UNITS/10 ML VIAL SC SCH (09:00)
[2021-10-17] MEDS ORDERED: Famotidine 20 MG TAB PO SCH (09:00)
[2021-10-17] MEDS: Senokot S 8.6-50 MG TAB PO SCH ×2 (09:08→20:03)
[2021-10-17] MEDS: Magnesium Oxide 250 MG TAB PO SCH (09:08)
[2021-10-17] MEDS: Iron Polysaccharides Complex 150 MG CAP PO SCH (09:08)
[2021-10-17] MEDS: Furosemide 40 MG TAB PO SCH (09:08)
[2021-10-17] MEDS: Folic Acid 1 MG TAB PO SCH (09:09)
[2021-10-17] MEDS: Potassium Chloride 20 MEQ in Premix Bag 1 BAG IVPB SCH ×2 (09:09→16:22)
[2021-10-17] MEDS ORDERED: Scopolamine 1.5 mg/72 hour Patch TD SCH (11:00)
[2021-10-17] MEDS ORDERED: Potassium Chloride 20 MEQ TAB PO SCH (14:45)
[2021-10-17] MEDS: Gabapentin 300 MG CAP PO SCH ×2 (16:17→20:05)
[2021-10-17] MEDS: Insulin Regular 300 UNITS/3 ML VIAL SC PRN (17:26)
[2021-10-17] MEDS: Atorvastatin Calcium 40 MG TAB PO SCH (20:03)
[2021-10-17] MEDS: Bumetanide 1 MG TAB PO SCH (20:03)
[2021-10-17] MEDS: Ciprofloxacin 500 MG TAB PO SCH (20:03)
[2021-10-17] MEDS: Dorzolamide HCl 2% Ophth Soln 10 ml Bottle EA EYE SCH (20:04)
[2021-10-18] MEDS: Ciprofloxacin 500 MG TAB PO SCH ×2 (05:39→21:17)
[2021-10-18 05:48] LABS: #Eosinphils 0.1 thou/uL (0.0-0.7); #Lymphocytes 0.9 thou/uL (1.20-3.40); #Monocytes 0.2 thou/uL (0.11-0.59); #Neutrophils 2.1 thou/uL (1.40-6.50); %Basophils 0.1 % (0.0-1.0); %Eosinophils 1.5 % (0.0-10.0); %Lymphocytes 26.5 % (21.0-51.0); %Neutrophils 64.9 % (42.0-75.0); Hemoglobin 8.9 g/dL (12.0-16.0); Mean Corpuscular HGB CONC 32.1 g/dL (32.0-36.0); Mean Corpuscular Hemoglobin 33.9 pg (27.0-31.0); Mean Platelet Volume 7.1 fL (7.4-10.4); Platelet Count 280 thou/uL (130-400); RBC Distribution Width 20.9 % (11.5-14.5); Red Blood Cell (RBC) Count 2.62 mill/uL (4.20-5.40); White Blood Cell (WBC) Count 3.3 thou/uL (4.8-10.8)
[2021-10-18 06:17] LABS: Anion Gap 13 mmol/L (10-20); BUN (Urea Nitrogen) 18 mg/dL (9.8-20.1); Calc. Creatinine Clearance 64 mL/min (70-130); Calcium 8.4 mg/dL (7.8-10.44); Carbon Dioxide 35 mmol/L (23-31); Chloride 92 mmol/L (98-107); Glucose 139 mg/dL (83-110); Magnesium 1.7 mg/dL (1.6-2.6); Potassium 2.9 mmol/L (3.5-5.1); Sodium 137 mmol/L (136-145)
[2021-10-18] MEDS ORDERED: Magnesium Sulfate 2 GM in Sodium Chloride 0.9% 100 ML IVPB SCH (06:39)
[2021-10-18] MEDS ORDERED: Magnesium 2 GM/50 ML(in water) 2 GM in Premix Bag 1 BAG IVPB SCH (07:00)
[2021-10-18] MEDS ORDERED: Potassium Chloride 20 MEQ in Premix Bag 1 BAG IVPB SCH (08:00)
[2021-10-18] MEDS ORDERED: Potassium Phosphate 30 MMOL in Sodium Chloride 0.9% 250 ML 250 ML IVPB SCH (08:00)
[2021-10-18] MEDS ORDERED: Potassium Chloride 10 MEQ TAB PO SCH (09:00)
[2021-10-18] MEDS: Magnesium Oxide 250 MG TAB PO SCH (09:36)
[2021-10-18] MEDS: Folic Acid 1 MG TAB PO SCH (09:39)
[2021-10-18] MEDS: Furosemide 40 MG TAB PO SCH (09:39)
[2021-10-18] MEDS: Gabapentin 300 MG CAP PO SCH ×3 (09:39→21:18)
[2021-10-18] MEDS: Senokot S 8.6-50 MG TAB PO SCH ×2 (09:39→21:17)
[2021-10-18] MEDS: Iron Polysaccharides Complex 150 MG CAP PO SCH (09:47)
[2021-10-18] MEDS: Bumetanide 1 MG TAB PO SCH ×2 (09:47→21:18)
[2021-10-18] MEDS ORDERED: Bisacodyl 10 MG SUPP PR SCH (10:00)
[2021-10-18] MEDS ORDERED: Meclizine HCl 12.5 MG TAB PO SCH (10:00)
[2021-10-18] MEDS: Dorzolamide HCl 2% Ophth Soln 10 ml Bottle EA EYE SCH ×2 (10:26→21:17)
[2021-10-18] MEDS: Insulin Regular 300 UNITS/3 ML VIAL SC PRN ×3 (11:18→21:20)
[2021-10-18] MEDS: Atorvastatin Calcium 40 MG TAB PO SCH (21:17)
[2021-10-18] MEDS: Meclizine HCl 12.5 MG TAB PO SCH (21:17)
[2021-10-18] MEDS: Enoxaparin Sodium 40 MG/0.4 ML SYRINGE SC SCH (21:18)
[2021-10-19 04:43] LABS: Anion Gap 14 mmol/L (10-20); BUN (Urea Nitrogen) 17 mg/dL (9.8-20.1); Calc. Creatinine Clearance 62 mL/min (70-130); Calcium 8.1 mg/dL (7.8-10.44); Carbon Dioxide 36 mmol/L (23-31); Chloride 89 mmol/L (98-107); Glucose 228 mg/dL (83-110); Magnesium 1.9 mg/dL (1.6-2.6); Phosphorus 3.2 mg/dL (2.3-4.7); Sodium 136 mmol/L (136-145)
[2021-10-19 04:46] LABS: Potassium 2.9 mmol/L (3.5-5.1)
[2021-10-19] MEDS: Ciprofloxacin 500 MG TAB PO SCH ×2 (05:22→19:46)
[2021-10-19] MEDS: Insulin Regular 300 UNITS/3 ML VIAL SC PRN ×3 (05:23→16:32)
[2021-10-19] MEDS ORDERED: Insulin Regular 300 UNITS/3 ML VIAL SC PRN (07:57)
[2021-10-19] MEDS ORDERED: Potassium Chloride 40 MEQ in Premix Bag 1 BAG IVPB SCH (08:00)
[2021-10-19] MEDS ORDERED: Magnesium 2 GM/50 ML(in water) 2 GM in Premix Bag 1 BAG IVPB SCH ×2 (09:00→19:00)
[2021-10-19] MEDS: Magnesium Oxide 250 MG TAB PO SCH (09:49)
[2021-10-19] MEDS: Iron Polysaccharides Complex 150 MG CAP PO SCH (09:49)
[2021-10-19] MEDS: Potassium Chloride 20 MEQ TAB PO SCH ×2 (09:50→16:31)
[2021-10-19] MEDS: Dorzolamide HCl 2% Ophth Soln 10 ml Bottle EA EYE SCH ×2 (09:50→20:40)
[2021-10-19] MEDS: Bumetanide 1 MG TAB PO SCH ×2 (09:50→20:35)
[2021-10-19] MEDS: Folic Acid 1 MG TAB PO SCH (09:51)
[2021-10-19] MEDS: Senokot S 8.6-50 MG TAB PO SCH ×2 (09:52→20:36)
[2021-10-19] MEDS: Gabapentin 300 MG CAP PO SCH ×3 (09:52→20:35)
[2021-10-19] MEDS: Meclizine HCl 12.5 MG TAB PO SCH ×2 (09:52→20:36)
[2021-10-19 17:53] LABS: Phosphorus 2.5 mg/dL (2.3-4.7)
[2021-10-19 18:01] LABS: Anion Gap 12 mmol/L (10-20); BUN (Urea Nitrogen) 19 mg/dL (9.8-20.1); Calc. Creatinine Clearance 57 mL/min (70-130); Calcium 8.3 mg/dL (7.8-10.44); Carbon Dioxide 33 mmol/L (23-31); Chloride 91 mmol/L (98-107); Glucose 223 mg/dL (83-110); Magnesium 1.8 mg/dL (1.6-2.6); Potassium 3.8 mmol/L (3.5-5.1); Sodium 132 mmol/L (136-145)
[2021-10-19] MEDS ORDERED: PHOS-NAK 1 PKT PACK PO SCH (19:00)
[2021-10-19] MEDS: Atorvastatin Calcium 40 MG TAB PO SCH (20:36)
[2021-10-19] MEDS: Enoxaparin Sodium 40 MG/0.4 ML SYRINGE SC SCH (20:36)
[2021-10-20] MEDS: Insulin Regular 300 UNITS/3 ML VIAL SC PRN ×2 (05:45→12:07)
[2021-10-20 06:49] LABS: BUN (Urea Nitrogen) 21 mg/dL (9.8-20.1); Calc. Creatinine Clearance 56 mL/min (70-130); Calcium 8.2 mg/dL (7.8-10.44); Glucose 229 mg/dL (83-110); Magnesium 2.1 mg/dL (1.6-2.6)
[2021-10-20 06:58] LABS: Anion Gap 18 mmol/L (10-20); Carbon Dioxide 31 mmol/L (23-31); Chloride 91 mmol/L (98-107); Potassium 3.7 mmol/L (3.5-5.1); Sodium 136 mmol/L (136-145)
[2021-10-20] MEDS: Magnesium Oxide 250 MG TAB PO SCH (08:29)
[2021-10-20] MEDS: Folic Acid 1 MG TAB PO SCH (08:30)
[2021-10-20] MEDS: Meclizine HCl 12.5 MG TAB PO SCH (08:30)
[2021-10-20] MEDS: Senokot S 8.6-50 MG TAB PO SCH (08:30)
[2021-10-20] MEDS: Bumetanide 1 MG TAB PO SCH (08:30)
[2021-10-20] MEDS: Potassium Chloride 20 MEQ TAB PO SCH (08:30)
[2021-10-20] MEDS: Gabapentin 300 MG CAP PO SCH ×2 (08:31→14:42)
[2021-10-20] MEDS: Iron Polysaccharides Complex 150 MG CAP PO SCH (08:31)
[2021-10-20] MEDS ORDERED: Potassium Chloride 20 MEQ TAB PO SCH (09:00)
[2021-10-20] MEDS: Dorzolamide HCl 2% Ophth Soln 10 ml Bottle EA EYE SCH (09:49)
[2021-10-20 11:58] VITALS: BP 110/56; TEMP 98.3
== END 2021-10-20 15:15 | DRG 86 ==
LOC: ERS 22:28 → SURG A 22:58
PROVIDERS: ADMIT Specialist; ATTEND Surgery
DX: S06.5X0A Traumatic subdural hemorrhage without loss of consciousness, initial encounter (principal); C79.51 Secondary malignant neoplasm of bone; N39.0 Urinary tract infection, site not specified; W19.XXXA Unspecified fall, initial encounter; Z20.822 Contact with and (suspected) exposure to COVID-19; E11.9 Type 2 diabetes mellitus without complications; E78.5 Hyperlipidemia, unspecified; E78.00 Pure hypercholesterolemia, unspecified; I10 Essential (primary) hypertension; R40.2410 Glasgow coma scale score 13-15, unspecified time; F07.81 Postconcussional syndrome; E87.6 Hypokalemia; Z95.1 Presence of aortocoronary bypass graft; Z90.710 Acquired absence of both cervix and uterus; Z90.09 Acquired absence of other part of head and neck; Z88.2 Allergy status to sulfonamides; Z88.8 Allergy status to other drugs, medicaments and biological substances; Z79.01 Long term (current) use of anticoagulants; Z79.899 Other long term (current) drug therapy; Z79.4 Long term (current) use of insulin; S00.03XA Contusion of scalp, initial encounter; W01.198A Fall on same level from slipping, tripping and stumbling with subsequent striking against other object, initial encounter; Z85.3 Personal history of malignant neoplasm of breast
CPT/HCPCS: 36415; 36416; 70450; 72125; 80048; 80053; 81001; 83735; 84100; 85025; 85610; 85730; 86850; 86900; 86901; 87077; 87086; 94760; J1642; J1650; J1815; J3475; J3480; J7050; U0002

== ENCOUNTER 2021-12-26 14:37 | Inpatient (IN) | payer MEDICARE ==
[~2021-12-26 14:37] MED LIST changes: -Gadobenate Dimeglumine 529 MG/1 ML (20ML VIAL) ONE; +Iopamidol-370 76% 500 ML 1 ML ONE
[2021-12-26 15:46] LABS: #Basophils 0.1 thou/uL (0.0-0.2); #Eosinphils 0.1 thou/uL (0.0-0.7); #Lymphocytes 2.6 thou/uL (1.20-3.40); #Monocytes 1.1 thou/uL (0.11-0.59); %Basophils 0.7 % (0.0-1.0); %Eosinophils 0.8 % (0.0-10.0); %Lymphocytes 26.3 % (21.0-51.0); %Monocytes 10.8 % (0.0-10.0); %Neutrophils 61.4 % (42.0-75.0); Hemoglobin 10.7 g/dL (12.0-16.0); Mean Corpuscular HGB CONC 30.9 g/dL (32.0-36.0); Mean Corpuscular Volume 96.9 fL (78.0-98.0); Mean Platelet Volume 6.1 fL (7.4-10.4); Platelet Count 459 thou/uL (130-400); RBC Distribution Width 17.3 % (11.5-14.5); Red Blood Cell (RBC) Count 3.58 mill/uL (4.20-5.40); White Blood Cell (WBC) Count 9.8 thou/uL (4.8-10.8)
[2021-12-26 16:07] LABS: Acetaminophen Less than 10.0 mcg/mL (10.0-30.0); Alcohol Less than 10 mg/dL (Less than 10); Salicylate Less than 8.0 mg/dL (15.0-30.0)
[2021-12-26 16:09] LABS: ALT (SGPT) 12 U/L (8-55); AST (SGOT) 25 U/L (5-34); Albumin 3.1 g/dL (3.4-4.8); Alkaline Phosphatase 110 U/L (40-110); Anion Gap 16 mmol/L (10-20); BUN (Urea Nitrogen) 12 mg/dL (9.8-20.1); Bilirubin, Total 0.8 mg/dL (0.2-1.2); Calc. Creatinine Clearance 0 mL/min (70-130); Calcium 8.8 mg/dL (7.8-10.44); Carbon Dioxide 26 mmol/L (23-31); Chloride 98 mmol/L (98-107); Globulin 3.6 g/dL (2.4-3.5); Glucose 84 mg/dL (83-110); Potassium 4.1 mmol/L (3.5-5.1); Protein, Total 6.7 g/dL (5.8-8.1); Sodium 136 mmol/L (136-145)
[2021-12-26] MEDS ORDERED: Ondansetron PF 4 MG/2 ML Vial IVP PRN (17:52)
[2021-12-26] MEDS ORDERED: Acetaminophen 325 MG TAB PO PRN (17:52)
[2021-12-26] MEDS ORDERED: Morphine 2 MG/ML VIAL SLOW IVP PRN (17:56)
[2021-12-26] MEDS ORDERED: Dextrose 50% Abboject 50 ML SYRINGE SLOW IVP PRN (17:57)
[2021-12-26] MEDS ORDERED: Dextrose 5% in Water 1,000 ML IV PRN (17:57)
[2021-12-26] MEDS ORDERED: HumaLOG 300 UNITS/3 ML VIAL SC PRN (17:57)
[2021-12-26 18:55] LABS: SARS-CoV-2 NAA Rapid Test Not Detected (NotDetected)
[2021-12-26 19:17] LABS: INR-International Normal Ratio 1.1
[2021-12-26 19:20] LABS: PTT 37.9 sec (22.9-36.1)
[2021-12-26] MEDS: Gabapentin 300 MG CAP PO SCH (20:28)
[2021-12-26] MEDS: Insulin Glargine 30 UNITS/0.3 ML VIAL SC SCH (20:29)
[2021-12-26] MEDS ORDERED: Atorvastatin Calcium 40 MG TAB PO SCH (21:00)
[2021-12-26] MEDS: Dorzolamide HCl 2% Ophth Soln 10 ml Bottle EA EYE SCH (21:26)
[2021-12-27 04:18] LABS: #Eosinphils 0.1 thou/uL (0.0-0.7); #Lymphocytes 0.6 thou/uL (1.20-3.40); #Monocytes 0.6 thou/uL (0.11-0.59); #Neutrophils 5.8 thou/uL (1.40-6.50); %Basophils 0.4 % (0.0-1.0); %Eosinophils 0.9 % (0.0-10.0); %Lymphocytes 8.2 % (21.0-51.0); %Monocytes 8.2 % (0.0-10.0); %Neutrophils 82.3 % (42.0-75.0); Hemoglobin 9.6 g/dL (12.0-16.0); Mean Corpuscular HGB CONC 30.8 g/dL (32.0-36.0); Mean Corpuscular Hemoglobin 30.1 pg (27.0-31.0); Mean Corpuscular Volume 97.6 fL (78.0-98.0); Mean Platelet Volume 5.9 fL (7.4-10.4); Platelet Count 363 thou/uL (130-400); RBC Distribution Width 17.2 % (11.5-14.5); Red Blood Cell (RBC) Count 3.19 mill/uL (4.20-5.40)
[2021-12-27 04:29] LABS: Anion Gap 15 mmol/L (10-20); BUN (Urea Nitrogen) 14 mg/dL (9.8-20.1); Calc. Creatinine Clearance 73 mL/min (70-130); Calcium 8.4 mg/dL (7.8-10.44); Carbon Dioxide 25 mmol/L (23-31); Chloride 99 mmol/L (98-107); Glucose 192 mg/dL (83-110); Potassium 3.7 mmol/L (3.5-5.1); Sodium 135 mmol/L (136-145)
[2021-12-27 05:04] VITALS: BMI 27.4
[2021-12-27] MEDS ORDERED: Polyethylene Glycol 3350 17 GM Packet PO PRN (08:31)
[2021-12-27] MEDS ORDERED: Acetaminophen 325 MG TAB PO PRN (08:36)
[2021-12-27] MEDS ORDERED: Folic Acid 1 MG TAB PO SCH (09:00)
[2021-12-27] MEDS ORDERED: pyridOXINE 50 MG (B6) TAB PO SCH (09:00)
[2021-12-27] MEDS ORDERED: Cyanocobalamin (Vitamin B-12) 1,000 MCG TAB PO SCH (09:00)
[2021-12-27] MEDS ORDERED: Magnesium Oxide 400 MG TAB PO SCH (09:00)
[2021-12-27] MEDS ORDERED: Senokot S 8.6-50 MG TAB PO SCH (09:00)
[2021-12-27] MEDS: Gabapentin 300 MG CAP PO SCH ×2 (10:07→17:46)
[2021-12-27] MEDS: Dorzolamide HCl 2% Ophth Soln 10 ml Bottle EA EYE SCH (10:09)
[2021-12-27] MEDS: Insulin Glargine 30 UNITS/0.3 ML VIAL SC SCH (10:10)
[2021-12-27] MEDS ORDERED: Morphine IR Tab 15 MG TAB PO SCH (14:00)
[2021-12-27 18:04] VITALS: TEMP 98.2
[2021-12-28] MEDS ORDERED: Iron Polysaccharides Complex 150 MG CAP PO SCH (08:00)
== END 2021-12-27 19:30 | DRG 66 ==
LOC: ERS 14:37 → CCU 17:03
PROVIDERS: ADMIT Internal Medicine; ATTEND Internal Medicine
DX: I60.9 Nontraumatic subarachnoid hemorrhage, unspecified (principal); Z20.822 Contact with and (suspected) exposure to COVID-19; I10 Essential (primary) hypertension; E78.5 Hyperlipidemia, unspecified; E78.00 Pure hypercholesterolemia, unspecified; I48.91 Unspecified atrial fibrillation; I62.03 Nontraumatic chronic subdural hemorrhage; Z88.2 Allergy status to sulfonamides; Z95.1 Presence of aortocoronary bypass graft; Z90.710 Acquired absence of both cervix and uterus; Z90.89 Acquired absence of other organs; Z85.3 Personal history of malignant neoplasm of breast; Z85.830 Personal history of malignant neoplasm of bone; Z92.3 Personal history of irradiation; Z92.21 Personal history of antineoplastic chemotherapy
CPT/HCPCS: 36415; 36416; 70450; 70496; 80048; 80053; 80307; 85025; 85610; 85730; 93005; J1815; Q9967; U0002

== ENCOUNTER 2022-01-17 16:12 | Emergency (ER) | payer MEDICARE, OTHER ==
[2022-01-17] MEDS ORDERED: Acetaminophen 500 MG TAB ONE (16:31)
== END 2022-01-17 19:30 ==
LOC: ERS 16:12
DX: R51.9 Headache, unspecified (principal); E11.9 Type 2 diabetes mellitus without complications; E78.5 Hyperlipidemia, unspecified; I10 Essential (primary) hypertension; Z79.4 Long term (current) use of insulin; Z79.899 Other long term (current) drug therapy; W19.XXXA Unspecified fall, initial encounter; M25.551 Pain in right hip
CPT/HCPCS: 70450; 71045; 72125